=== PATIENT | male | born 1960 | race Caucasian/White ===

== ENCOUNTER 2019-03-29 18:45 | Inpatient (IN) ==
--- OUTSIDE RECORDS SUMMARY | 2019-03-29 18:48 | External Medical Summary | Continuity of Care Document ---
:1960 Author Name Avi Gilmore, Provider Address Unavailable Unavailable , Care Team Providers Name Role Phone Ynes Naylor Unavailable [email or web address] PCP, UNKNOWN Unavailable Unavailable Assessments Assessed Problems:Encounter for CDL (commercial driving license) exam Problems Encounter for CDL (commercial driving license) exam (V70.5) (Z02.4) Allergies and Adverse Reactions Allergy history not documented Medications Medications not documented Procedures Procedures not documented Immunizations Immunizations not documented Interventions Discussion/SummaryRecertification for 2 years Plan of Treatment Planned Observations Planned Goals not documented Results No Known Results Results not documented Encounters Appointment; Ynes Parham CRNP 15-Jul-2018 10:45 Encounter Diagnosis: Problem not documented
[2019-03-29 20:37] LABS: Basophils # (auto) 0.01 K/uL (0-0.2); Basophils % (auto) 0.2 %; Eosinophils # (auto) 0.26 K/uL (0-0.5); Eosinophils % (auto) 5.9 %; Hematocrit (blood only) 24.7 % (42-52); Hemoglobin 8.8 g/dL (14.0-18.0); Immature Granulocytes # (auto) 0.01 K/uL (0.00-0.02); Immature Granulocytes % (auto) 0.2 %; Lymphocytes # (auto) 0.54 K/uL (1.2-3.4); Lymphocytes % (auto) 12.3 %; Mean Corpuscular Hemoglobin 34.1 pg (25-34); Mean Corpuscular Hgb Conc 35.6 g/dL (32-36); Mean Corpuscular Volume 95.7 fL (80-100); Mean Platelet Volume 8.6 fL (7.4-10.4); Monocytes # (auto) 0.64 K/uL (0.11-0.59); Monocytes % (auto) 14.5 %; Neutrophils # (auto) 2.94 K/uL (1.4-6.5); Neutrophils % (auto) 66.9 %; Platelet Count 135 K/uL (130-400); RDW Coefficient of Variation 14.5 % (11.5-14.5); RDW Standard Deviation 50.9 fL (36.4-46.3); Red Blood Count 2.58 M/uL (4.7-6.1)
[2019-03-29 20:45] LABS: iSTAT Creatinine 0.5 mg/dl (0.6-1.3); iSTAT Hemoglobin 7.8 g/dl (14.0-18.0); iSTAT Ionized Calcium 1.09 mmol/l (1.12-1.32); iSTAT Potassium 3.4 mEq/L (3.3-5.0)
[2019-03-29 20:47] LABS: INR 1.1 (0.9-1.1); Partial Thromboplastin Ratio 1.3; Partial Thromboplastin Time 35.5 Seconds (21.0-31.0); Prothrombin Time 11.4 Seconds (9.0-12.0)
--- NOTE | 2019-03-29 20:47 | XRay Report ---
XR chest 1V portable HISTORY: weakness COMPARISON: None. FINDINGS: No pneumothorax. No pleural effusions. The heart is normal in size. Right jugular Port-A-Ca th terminates at the SVC. A few small linear densities favor subsegmental atelectasis or scarring. Ot herwise, lungs are clear. IMPRESSION: No acute process. Electronically signed by: Mt Payan M.D. 03/29/2019 8:45 PM
[2019-03-29 20:51] LABS: Albumin Level 2.2 gm/dl (3.4-5.0); BUN Creatinine Ratio 10.4 (10-20); Blood Urea Nitrogen 6 mg/dl (7-18); Calcium 7.6 mg/dl (8.5-10.1); Carbon Dioxide 27 mmol/L (21-32); Chloride 95 mmol/L (98-107); Creatinine Clr Calc Pharmacy 149.5 ml/min; Est GFR (African American) 130.3; Est GFR (Non-African American) 112.4; Glucose 140 mg/dl (70-99); Potassium 3.4 mmol/L (3.5-5.1); Sodium 128 mmol/L (136-145)
[2019-03-29] MEDS ORDERED: ONDANSETRON INJ 2 MG/ML 2 ML VIAL IV STA (20:57)
[2019-03-29] MEDS ORDERED: MoRPHine SULFATE 2 MG/ML CARP IV STA (20:57)
[2019-03-29 21:02] LABS: Alanine Aminotransferase 15 U/L (12-78); Albumin Globulin Ratio 0.8 (0.9-2); Alkaline Phosphatase 184 U/L (45-117); Aspartate Aminotransferase 31 U/L (15-37); Bilirubin,Total 0.7 mg/dl (0.2-1); Globulin 2.8 gm/dl (2.5-4.0); NT Pro B Type Natriuretic Pept 104 pg/ml (0-900); Troponin I < 0.015 ng/ml (0-0.045)
[2019-03-29] MEDS ORDERED: IOVERSOL 100ml IV PRN (21:09)
[2019-03-29 21:14] LABS: T4 Free Thyroxine 1.03 ng/dl (0.8-1.6)
--- NOTE | 2019-03-29 21:39 | CT Scan Report ---
ABDOMEN AND PELVIS CT WITH IV CONTRAST CT DOSE: 545.57 mGy.cm HISTORY: Generalized abd pain and distention TECHNIQUE: Multiaxial CT images of the abdomen and pelvis were performed following the use of intrave nous contrast. A dose lowering technique was utilized adhering to the principles of ALARA. COMPARISON STUDY: Abdomen and pelvis CT 04/11/2014. FINDINGS: Partially visualized right lower lobe masslike density measuring 2.1 cm. Trace left pleural effusion. A 1 cm nodular density within the base of the left lower lobe on image 28 is indeterminate and could represent atelectasis. No pneumoperitoneum. No pneumatosis. No suspicious lytic or blastic osseous lesions. Stable 15 mm hemangioma within the L3 vertebral body. 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 Cholelithiasis. No gallbladder wall thickening. No hepatic or splenic masses. Normal pancr eas. The left adrenal gland is unremarkable. Nodular thickening of the right adrenal gland with perip heral calcification. This measures up to 15 mm in thickness. No retroperitoneal lymphadenopathy. Norm al kidneys. The main portal vein is patent. Moderate to large amount of ascites. Postoperative change s consistent with a prior right hemicolectomy. No bowel wall thickening or obstruction. A 3.3 cm hypo dense focus within the central liver. This could represent a hepatic mass and is new from the prior s tudy. The bladder is decompressed by the ascites but appears unremarkable. IMPRESSION: 1. Moderate to large amount of ascites. A malignant ascites would be the diagnosis of exclusion given the patient's history of colon cancer. 2. A new 3.3 cm hypodense focus within the central liver. This could represent a metastatic lesion. D edicated liver MRI is recommended for further evaluation. 3. Partially visualized 2.1 cm masslike density within the right lower lobe. This could represent a p rimary pulmonary mass, metastatic disease, or a focal pneumonia. 4. Trace left pleural effusion. 5. Cholelithiasis. 6. Small paraesophageal varices. 7. Additional findings as described above. Electronically signed by: Mt Payan M.D. 03/29/2019 9:37 PM
[2019-03-29] MEDS ORDERED: SODIUM CHLORIDE 0.9% 500 ML IV ONE (21:59)
[2019-03-29] MEDS ORDERED: POTASSIUM CHLORIDE 20 MEQ TABCR PO STA (21:59)
[2019-03-29] MEDS ORDERED: ALBUMIN 25% 50 ML with FUROSEMIDE 40 MG IV ONE (22:30)
[2019-03-29] MEDS ORDERED: cefTRIAXone SODIUM 1,000 MG/50 ML BAG IV STA (22:52)
--- NOTE | 2019-03-29 22:53 | History & Physical Report ---
Date of Service March 29, 2019 Assessment & Plan (1) Ascites: Painful ascites Possible SBP, patient not septic tumor cirrhosis, new diagnosis hx colon cancer with liver and lung mets status post surgery, chemotherapy Acute on chronic anemia, hemoglobin drop from baseline Patient denies gross GI bleed chronic thrombocytopenia chronic hyponatremia likely slightly malignancy, liver disease Hypokalemia secondary to diuretic Rx Hyperglycemia rule out DM Medical telemetry given hyponatremia Lasix albumin 1 dose Ceftriaxone 1 dose for possible SBP given painful ascites complaints Diagnostic and therapeutic paracenteses (Ceftriaxone, IV albumin if peritoneal fluid analysis consistent with exudative ascites) GI consult RE new diagnosis of cirrhosis Monitor sodium, fluid restriction Replace potassium Anemia work-up, transfuse PRBC if hemoglobin less than 7 and/or for symptomatic anemia Check hemoglobin A1c DVT prophylaxis. SCDs RE thrombocytopenia Full code History of Present Illness Chief Complaint: Increased abdominal distention/pain Primary Care Provider: Radhames Millard PA-C History obtained from patient, family, and records. Medical history significant for colon cancer with liver and lung mets status post surgery, chemotherapy, chronic anemia (baseline hemoglobin 9-10), chronic thrombocytopenia, chronic hyponatremia. Recent confinement April 2014 under surgery service for colon perforation status post surgery. Right colon pathology later found to be invasive adenocarcinoma. Patient underwent chemotherapy. June 2017, patient found to have lung mets on imaging status post chemotherapy. July,, follow-up PET scan showed new metabolically active liver mets. MRI later showed metastatic disease left hepatic lobe. Additional chemotherapy given. December, PET/CT showed decreasing size metastatic nodule right lower lobe. New moderate large amount of ascites, diffuse mesenteric/omental edema h ypervascularity secondary to cirrhosis or other systemic process or neoplasm. Splenomegaly also noted. Patient abdomen noted to be distended by home nurse about 2 weeks ago. No unusual abdominal pain. Progressive abdominal distention and weight gain of about 20 pounds noted subsequently. Increased diarrhea attributed to recent chemotherapy session. Patient seen on follow-up at [facility] last week. Lasix prescription given for ascites, fluid retention. Hold chemotherapy interim as per outpatient note. Increasing abdominal distention and generalized abdominal pain with some nausea and emesis the last few days despite compliance with Lasix prescription. No fever, no chills. Diarrhea resolved as per patient. Increased bilateral leg swelling. Shortness of breath due to increased abdominal distention as per patient. No chest pain. Patient directed to the ER by PCPs office after consultation today. Medical History as above Surgical History : Bowel surgery, a port placement Family History : Diabetes Personal/Social history : Non-smoker, occasional EtOH intake, excavation contractor Allergies Allergy/AdvReac Type Severity Reaction Status Date / Time No Known Allergies Allergy Unverified 04/12/14 00:22 Home Medications Home Medications Medication Instructions Recorded Confirmed Type furosemide [Lasix] 20 mg PO DAILY 03/29/19 03/29/19 History ranitidine HCl [Zantac] 150 mg PO DAILY PRN 03/29/19 03/29/19 History Past Med/Surg History Surgical History History of partial colectomy Social History Preferred Language: Kiswahili Communication Ability: Effective On Site Manager Required: No Beliefs That Will Affect Care: None Current Living Situation: Significant Other Other Information That Helps Us Care for You: Yes (chemo [id number] (last dose on last thu of jan)) Feels Safe at Home: Yes Safety Concerns: Feels Safe At This Time Smoking Status: Never smoker Do You Dip or Chew Tobacco: Yes (1 can/week) ; Tobacco Cessation Education Requested by Patient: No Hx Alcohol Use: Yes Alcohol type: beer Hx Substance Use: No Review of Systems Review of Systems: As per HPI, all 10 systems reviewed, all other ROS negative Physical Exam Physical Exam: GENERAL: Comfortable, pleasant, underweight, no respiratory distress SKIN: Pallor, warm HEENT: Alopecia, pale palpebral conjunctivae, no ptosis, dry buccal mucosa NECK : Supple, no tenderness CHEST : CTA, no tenderness HEART : RRR, systolic murmur ABDOMEN: distention, nonspecific tenderness on light palpation, fluid wave EXTREMITIES : Bilateral LE swelling, no LE tenderness, no other conspicuous deformities noted NEUROLOGIC : Coherent, no facial asymmetry, no other gross focality Results & Data Vital Signs (Past 12 Hours) Vital Signs Temp Pulse Pulse Resp BP BP Pulse Ox 03/29/19 22:37 87 18 122/85 99 03/29/19 20:32 90 23 125/87 100 03/29/19 20:31 92 H 23 100 03/29/19 19:35 92 H 18 124/88 100 03/29/19 18:57 37.3 C 98 H 16 126/94 96 Laboratory Results Laboratory Results WBC 4.40 K/uL (4.8-10.8) L 03/29/19 19:43 RBC 2.58 M/uL (4.7-6.1) L 03/29/19 19:43 Hgb 8.8 g/dL (14.0-18.0) L 03/29/19 19:43 POC Hgb 7.8 g/dl (14.0-18.0) L 03/29/19 20:31 Hct 24.7 % (42-52) L 03/29/19 19:43 POC Hct 23 % (42-52) L 03/29/19 20:31 MCV 95.7 fL (80-100) 03/29/19 19:43 MCH 34.1 pg (25-34) H 03/29/19 19:43 MCHC 35.6 g/dL (32-36) 03/29/19 19:43 RDW Std Deviation 50.9 fL (36.4-46.3) H 03/29/19 19:43 RDW Coeff of Selam 14.5 % (11.5-14.5) 03/29/19 19:43 Plt Count 135 K/uL (130-400) 03/29/19 19:43 MPV 8.6 fL (7.4-10.4) 03/29/19 19:43 Immature Gran % (Auto) 0.2 % 03/29/19 19:43 Neut % (Auto) 66.9 % 03/29/19 19:43 Lymph % (Auto) 12.3 % 03/29/19 19:43 Hendricks % (Auto) 14.5 % 03/29/19 19:43 Eos % (Auto) 5.9 % 03/29/19 19:43 Baso % (Auto) 0.2 % 03/29/19 19:43 Immature Gran # (Auto) 0.01 K/uL (0.00-0.02) 03/29/19 19:43 Neut # (Auto) 2.94 K/uL (1.4-6.5) 03/29/19 19:43 Lymph # (Auto) 0.54 K/uL (1.2-3.4) L 03/29/19 19:43 Hendricks # (Auto) 0.64 K/uL (0.11-0.59) H 03/29/19 19:43 Eos # (Auto) 0.26 K/uL (0-0.5) 03/29/19 19:43 Baso # (Auto) 0.01 K/uL (0-0.2) 03/29/19 19:43 PT 11.4 Seconds (9.0-12.0) 03/29/19 19:43 INR 1.1 (0.9-1.1) 03/29/19 19:43 APTT 35.5 Seconds (21.0-31.0) H 03/29/19 19:43 PTT Ratio 1.3 03/29/19 19:43 POC Sodium 126 mEq/L (135-144) L 03/29/19 20:31 Sodium 128 mmol/L (136-145) L 03/29/19 19:43 POC Potassium 3.4 mEq/L (3.3-5.0) 03/29/19 20:31 Potassium 3.4 mmol/L (3.5-5.1) L 03/29/19 19:43 POC Chloride 90 mEq/L (101-112) L 03/29/19 20:31 Chloride 95 mmol/L (98-107) L 03/29/19 19:43 Carbon Dioxide 27 mmol/L (21-32) 03/29/19 19:43 POC Total CO2 24 mEq/l (24-31) 03/29/19 20:31 Anion Gap 6.0 (3-11) 03/29/19 19:43 POC Anion Gap 17.0 mmol/L (16-25) 03/29/19 20:31 POC BUN 4 mg/dl (7-18) L 03/29/19 20:31 BUN 6 mg/dl (7-18) L 03/29/19 19:43 Creatinine 0.60 mg/dl (0.6-1.4) 03/29/19 19:43 POC Creatinine 0.5 mg/dl (0.6-1.3) L 03/29/19 20:31 Est Cr Clr Drug Dosing 149.5 ml/min 03/29/19 19:43 Est GFR ( Amer) 130.3 03/29/19 19:43 Est GFR (Non-Af Amer) 112.4 03/29/19 19:43 BUN/Creatinine Ratio 10.4 (10-20) 03/29/19 19:43 Glucose 140 mg/dl (70-99) H 03/29/19 19:43 POC Glucose (other) 141 mg/dl (70-99) H 03/29/19 20:31 Osmolality 260 mOsm/kg (280-300) L 03/29/19 22:17 Lactate 2.2 mmol/L (0.4-2.0) H* 03/29/19 19:43 Calcium 7.6 mg/dl (8.5-10.1) L 03/29/19 19:43 POC Ioniz Calcium Saba 1.09 mmol/l (1.12-1.32) L 03/29/19 20:31 Magnesium 1.8 mg/dl (1.8-2.4) 03/29/19 19:43 Total Bilirubin 0.7 mg/dl (0.2-1) 03/29/19 19:43 AST 31 U/L (15-37) 03/29/19 19:43 ALT 15 U/L (12-78) 03/29/19 19:43 Alkaline Phosphatase 184 U/L (45-117) H 03/29/19 19:43 Troponin I < 0.015 ng/ml (0-0.045) 03/29/19 19:43 NT-Pro-B Natriuret Pep 104 pg/ml (0-900) 03/29/19 19:43 Total Protein 5.0 gm/dl (6.4-8.2) L 03/29/19 19:43 Albumin 2.2 gm/dl (3.4-5.0) L 03/29/19 19:43 Globulin 2.8 gm/dl (2.5-4.0) 03/29/19 19:43 Albumin/Globulin Ratio 0.8 (0.9-2) L 03/29/19 19:43 TSH 4.930 uIu/ml (0.300-4.500) H 03/29/19 19:43 Free T4 1.03 ng/dl (0.8-1.6) 03/29/19 19:43 Diagnostic Findings Chest x-ray no acute process EKG as per my interpretation: Rate 90, NSR, normal axis, no ischemia CT abdomen pelvis 1. Moderate to large amount of ascites. A malignant ascites would be the diagnosis of exclusion given the patient's history of colon cancer. 2. A new 3.3 cm hypodense focus within the central liver. This could represent a metastatic lesion. Dedicated liver MRI is recommended for further evaluation. 3. Partially visualized 2.1 cm masslike density within the right lower lobe. This could represent a primary pulmonary mass, metastatic disease, or a focal pneumonia. 4. Trace left pleural effusion. 5. Cholelithiasis. 6. Small paraesophageal varices. 7. Additional findings as described above. (1) Ascites Ascites type: other type Qualified Code(s): R18.8 - Other ascites
[2019-03-29 23:41] LABS: Appearance Urine Clear (Clear); Bilirubin Urine Negative (Negative); Blood Urine Negative (Negative); Color Urine Yellow; Glucose Urine UA Negative (Negative); Ketones Urine Negative (Negative); Leukocyte Esterase Urine Negative (Negative); Nitrite Urine Negative (Negative); Protein Urine Negative (Negative); Specific Gravity Urine 1.031 (1.000-1.030); Urobilinogen Urine Negative (Negative); pH Urine 7.5 (4.5-7.5)
[2019-03-29] MEDS ORDERED: MAGNESIUM SULFATE / D5W 1 GM/100 ML BAG IV ONE (23:55)
[2019-03-29] MEDS ORDERED: PROMETHAZINE HCL 12.5 MG in SODIUM CHLORIDE 0.9% 50 ML IV PRN (23:55)
[2019-03-29] MEDS ORDERED: LORazepam 0.5 MG/1 ML VIAL IV PRN (23:55)
[2019-03-29] MEDS ORDERED: OXYCODONE HCL IR 5 MG TAB (IMMEDIATE RELEASE) PO PRN (23:55)
[2019-03-29] MEDS ORDERED: CALCIUM GLUCONATE 10% 1,000 MG in SODIUM CHLORIDE 0.9% 50 ML IV STA (23:55)
[2019-03-30] MEDS: MoRPHine SULFATE 4 MG/ML 1 ML CARP\\VIAL IV PRN ×2 (00:55→11:19)
[2019-03-30 01:03] LABS: Reticulocyte % 2.1 % (0.5-2.0); Reticulocytes # 0.05 10^6/uL (0.02-0.10)
--- NOTE | 2019-03-30 01:03 | Emergency Department Note ---
Entered by Danyell Acosta acting as a scribe for History of Present Illness General Chief complaint: Swelling/Edema to Extremity Stated complaint: FLUID BUILD UP IN ABDOMEN Time Seen by Provider: 03/29/19 19:34 Source: patient Mode of arrival: ambulatory Limitations: no limitations History of Present Illness Onset (ago): day(s) 3 Location: abdomen Radiation: non-radiation Pain Consistency: + constant Maximum Pain Intensity: 10 Current Pain Intensity: 10 Relieved By: + none Exacerbated By: + none Associated symptoms: + other (-hematochezia, -melena); no fever/chills Treatments prior to arrival: none The patient is a 58 year old male who presents to the ED with complaints of abdominal pain for the past few days. He rates his discomfort as a 10/10 in severity. He is currently being treated for colon cancer. He has previously undergone a partial colectomy in 2013. He is still receiving chemotherapy but his last chemo was approximately 4 weeks ago. He states he has been swelling with fluid all over and recently gained 21 pounds in 3 weeks. He denies any recent fevers. He denies any hematochezia or melena. Home Medications Home Medications Medication Instructions Recorded Confirmed Type furosemide [Lasix] 20 mg PO DAILY 03/29/19 03/29/19 History ranitidine HCl [Zantac] 150 mg PO DAILY PRN 03/29/19 03/29/19 History Allergies Allergy/AdvReac Type Severity Reaction Status Date / Time No Known Allergies Allergy Unverified 04/12/14 00:22 Past Med/Surg History Surgical History History of partial colectomy Social History Preferred Language: French Communication Ability: Effective Hims Coder Required: No Beliefs That Will Affect Care: None Current Living Situation: Significant Other Other Information That Helps Us Care for You: Yes (chemo [id number] (last dose on last thu)) Feels Safe at Home: Yes Safety Concerns: Feels Safe At This Time Smoking Status: Never smoker Do You Dip or Chew Tobacco: Yes (1 can/week) ; Tobacco Cessation Education Requested by Patient: No Hx Alcohol Use: Yes Alcohol type: beer Hx Substance Use: No Review of Systems See HPI for pertinent positives & negatives. and A total of 10 systems reviewed and were otherwise negative Physical Exam Vital Signs Vital Signs - 24 hr 03/29/19 18:57 03/29/19 19:35 03/29/19 20:31 Temperature 37.3 C Temperature Source Oral Sepsis Recent Fever Within 48 Hours No Sepsis New/Unexplained Change in Mental Status No Sepsis Action Taken by Nursing No Action Required Pulse Rate 98 H 92 H Pulse Rate [Finger] 92 H Pulse Rhythm Regular Pulse Rhythm [Finger] Regular Pulse Strength [Finger] Normal Respiratory Rate 16 18 23 Respiratory Effort / Characteristics Non-Labored Spontaneous Respiratory Depth Normal Normal Respiratory Pattern Regular Blood Pressure 126/94 Blood Pressure [Right Arm] 124/88 Blood Pressure Mean 104 Blood Pressure Mean [Right Arm] 100 Pulse Oximetry 96 100 100 Oxygen Delivery Method Room Air Room Air Room Air 03/29/19 20:32 03/29/19 22:37 Temperature Temperature Source Sepsis Recent Fever Within 48 Hours Sepsis New/Unexplained Change in Mental Status Sepsis Action Taken by Nursing Pulse Rate Pulse Rate [Finger] 90 87 Pulse Rhythm Pulse Rhythm [Finger] Regular Regular Pulse Strength [Finger] Normal Normal Respiratory Rate 23 18 Respiratory Effort / Characteristics Non-Labored Spontaneous Non-Labored Spontaneous Respiratory Depth Normal Normal Respiratory Pattern Regular Regular Blood Pressure Blood Pressure [Right Arm] 125/87 122/85 Blood Pressure Mean Blood Pressure Mean [Right Arm] 99 97 Pulse Oximetry 100 99 Oxygen Delivery Method Room Air Room Air General: Chronically-ill appearing middle aged male in no acute distress. HEENT: Normal cephalic atraumatic. Pupils are equal round and reactive to light. Extraocular movements are intact. Oropharynx is pink with moist mucous membranes. No swelling of the mouth lips or tongue. Neck: Supple with a midline trachea. No meningeal signs or stiffness, no JVD or bruits. No Stridor. Chest: Clear to auscultation bilaterally. No wheezes or rhonchi. No increased work of breathing. Heart: regular rate and rhythm. Abdomen: Soft without rebound guarding or rigidity. Abdomen is distended, mildly diffusely tender, Extremities: No cyanosis clubbing. No calf tenderness or asymmetry. Pitting edema of BLE Spine/Back. Non tender to palpation. No CVA tenderness Skin: Good turgor without rashes. Neurologic exam: Cranial nerves two through 12 are intact. Motor and sensation are intact and symmetrical throughout. Course 1936: The patient was evaluated in room B8 and a complete history and physical were performed. 1999: I checked the patient at this time. He asked for something for his abdominal pain. Was give IV Zofran and morphine 2149: Discussed the patient's case with Dr. Rojas, [facility] Hospitalist. The patient will be evaluated for further management. Administered Medications Discontinued Medications Sodium Chloride (Nss) 500 mls @ 500 mls/hr IV .Q1H ONE Stop: 03/29/19 22:58 Last Admin: 03/29/19 22:36 Dose: Not Given Documented by: [id number] Furosemide 40 mg/ Albumin (Human) 54 mls @ 54 mls/hr IV NOW ONE Stop: 03/29/19 23:29 Last Infusion: 03/29/19 23:30 Dose: 0 mls/hr Documented by: [id number] Admin: 03/29/19 22:29 Dose: 54 mls/hr Documented by: [id number] Ceftriaxone Sodium (Rocephin) 1,000 mg in 50 mls @ 100 mls/hr IV NOW STA Stop: 03/29/19 23:21 Last Infusion: 03/29/19 23:42 Dose: 0 mls/hr Documented by: [id number] Admin: 03/29/19 23:12 Dose: 100 mls/hr Documented by: [id number] Ioversol (Optiray 320 100ml) 90 ml IV ONCE PRN PRN Reason: Interaction Checking Stop: 04/02/19 21:08 Last Admin: 03/29/19 21:09 Dose: 90 ml Documented by: [id number] Morphine Sulfate (Morphine Sulfate) 2 mg IV NOW STA Stop: 03/29/19 20:58 Last Admin: 03/29/19 21:01 Dose: 2 mg Documented by: [id number] Ondansetron HCl (Zofran) 4 mg IV NOW STA Stop: 03/29/19 20:58 Last Admin: 03/29/19 21:01 Dose: 4 mg Documented by: [id number] Potassium Chloride (Klor-Con M20) 40 meq PO NOW STA Stop: 03/29/19 22:00 Last Admin: 03/29/19 22:29 Dose: 40 meq Documented by: [id number] Medical Decision Making Differential Diagnosis The differential diagnoses considered include fluid retention, CHF, nutritional deficiency, cancer complication Medical Records Attestation: I reviewed the patient's medical records. Home Medications Current Medication List: was personally reviewed by me Laboratory Data Attestation: I reviewed the patient's lab results. Result diagrams: 03/29/19 19:43 03/29/19 19:43 Lab Results 03/29/19 03/29/19 03/29/19 Range/Units 19:43 19:43 19:43 WBC 4.40 L (4.8-10.8) K/uL RBC 2.58 L (4.7-6.1) M/uL Hgb 8.8 L (14.0-18.0) g/dL POC Hgb (14.0-18.0) g/dl Hct 24.7 L (42-52) % POC Hct (42-52) % MCV 95.7 (80-100) fL MCH 34.1 H (25-34) pg MCHC 35.6 (32-36) g/dL RDW Std Deviation 50.9 H (36.4-46.3) fL RDW Coeff of Selam 14.5 (11.5-14.5) % Plt Count 135 (130-400) K/uL MPV 8.6 (7.4-10.4) fL Immature Gran % (Auto) 0.2 % Neut % (Auto) 66.9 % Lymph % (Auto) 12.3 % Towns % (Auto) 14.5 % Eos % (Auto) 5.9 % Baso % (Auto) 0.2 % Immature Gran # (Auto) 0.01 (0.00-0.02) K/uL Neut # (Auto) 2.94 (1.4-6.5) K/uL Lymph # (Auto) 0.54 L (1.2-3.4) K/uL Towns # (Auto) 0.64 H (0.11-0.59) K/uL Eos # (Auto) 0.26 (0-0.5) K/uL Baso # (Auto) 0.01 (0-0.2) K/uL PT (9.0-12.0) Seconds INR (0.9-1.1) APTT (21.0-31.0) Seconds PTT Ratio POC Sodium (135-144) mEq/L Sodium 128 L (136-145) mmol/L POC Potassium (3.3-5.0) mEq/L Potassium 3.4 L (3.5-5.1) mmol/L POC Chloride (101-112) mEq/L Chloride 95 L (98-107) mmol/L Carbon Dioxide 27 (21-32) mmol/L POC Total CO2 (24-31) mEq/l Anion Gap 6.0 (3-11) POC Anion Gap (16-25) mmol/L POC BUN (7-18) mg/dl BUN 6 L (7-18) mg/dl Creatinine 0.60 (0.6-1.4) mg/dl POC Creatinine (0.6-1.3) mg/dl Est Cr Clr Drug Dosing 149.5 ml/min Est GFR ( Amer) 130.3 Est GFR (Non-Af Amer) 112.4 BUN/Creatinine Ratio 10.4 (10-20) Glucose 140 H (70-99) mg/dl POC Glucose (other) (70-99) mg/dl Osmolality (280-300) mOsm/kg Lactate 2.2 H* (0.4-2.0) mmol/L Calcium 7.6 L (8.5-10.1) mg/dl POC Ioniz Calcium Saba (1.12-1.32) mmol/l Magnesium (1.8-2.4) mg/dl Total Bilirubin 0.7 (0.2-1) mg/dl AST 31 (15-37) U/L ALT 15 (12-78) U/L Alkaline Phosphatase 184 H (45-117) U/L Troponin I < 0.015 (0-0.045) ng/ml NT-Pro-B Natriuret Pep 104 (0-900) pg/ml Total Protein 5.0 L (6.4-8.2) gm/dl Albumin 2.2 L (3.4-5.0) gm/dl Globulin 2.8 (2.5-4.0) gm/dl Albumin/Globulin Ratio 0.8 L (0.9-2) Procalcitonin (0-0.5) ng/ml TSH 4.930 H (0.300-4.500) uIu/ml Free T4 1.03 (0.8-1.6) ng/dl 03/29/19 03/29/19 03/29/19 Range/Units 19:43 19:43 20:31 WBC (4.8-10.8) K/uL RBC (4.7-6.1) M/uL Hgb (14.0-18.0) g/dL POC Hgb 7.8 L (14.0-18.0) g/dl Hct (42-52) % POC Hct 23 L (42-52) % MCV (80-100) fL MCH (25-34) pg MCHC (32-36) g/dL RDW Std Deviation (36.4-46.3) fL RDW Coeff of Selam (11.5-14.5) % Plt Count (130-400) K/uL MPV (7.4-10.4) fL Immature Gran % (Auto) % Neut % (Auto) % Lymph % (Auto) % Towns % (Auto) % Eos % (Auto) % Baso % (Auto) % Immature Gran # (Auto) (0.00-0.02) K/uL Neut # (Auto) (1.4-6.5) K/uL Lymph # (Auto) (1.2-3.4) K/uL Towns # (Auto) (0.11-0.59) K/uL Eos # (Auto) (0-0.5) K/uL Baso # (Auto) (0-0.2) K/uL PT 11.4 (9.0-12.0) Seconds INR 1.1 (0.9-1.1) APTT 35.5 H (21.0-31.0) Seconds PTT Ratio 1.3 POC Sodium 126 L (135-144) mEq/L Sodium (136-145) mmol/L POC Potassium 3.4 (3.3-5.0) mEq/L Potassium (3.5-5.1) mmol/L POC Chloride 90 L (101-112) mEq/L Chloride (98-107) mmol/L Carbon Dioxide (21-32) mmol/L POC Total CO2 24 (24-31) mEq/l Anion Gap (3-11) POC Anion Gap 17.0 (16-25) mmol/L POC BUN 4 L (7-18) mg/dl BUN (7-18) mg/dl Creatinine (0.6-1.4) mg/dl POC Creatinine 0.5 L (0.6-1.3) mg/dl Est Cr Clr Drug Dosing ml/min Est GFR ( Amer) Est GFR (Non-Af Amer) BUN/Creatinine Ratio (10-20) Glucose (70-99) mg/dl POC Glucose (other) 141 H (70-99) mg/dl Osmolality (280-300) mOsm/kg Lactate (0.4-2.0) mmol/L Calcium (8.5-10.1) mg/dl POC Ioniz Calcium Saba 1.09 L (1.12-1.32) mmol/l Magnesium 1.8 (1.8-2.4) mg/dl Total Bilirubin (0.2-1) mg/dl AST (15-37) U/L ALT (12-78) U/L Alkaline Phosphatase (45-117) U/L Troponin I (0-0.045) ng/ml NT-Pro-B Natriuret Pep (0-900) pg/ml Total Protein (6.4-8.2) gm/dl Albumin (3.4-5.0) gm/dl Globulin (2.5-4.0) gm/dl Albumin/Globulin Ratio (0.9-2) Procalcitonin (0-0.5) ng/ml TSH (0.300-4.500) uIu/ml Free T4 (0.8-1.6) ng/dl 03/29/19 03/29/19 Range/Units 22:17 22:17 WBC (4.8-10.8) K/uL RBC (4.7-6.1) M/uL Hgb (14.0-18.0) g/dL POC Hgb (14.0-18.0) g/dl Hct (42-52) % POC Hct (42-52) % MCV (80-100) fL MCH (25-34) pg MCHC (32-36) g/dL RDW Std Deviation (36.4-46.3) fL RDW Coeff of Selam (11.5-14.5) % Plt Count (130-400) K/uL MPV (7.4-10.4) fL Immature Gran % (Auto) % Neut % (Auto) % Lymph % (Auto) % Towns % (Auto) % Eos % (Auto) % Baso % (Auto) % Immature Gran # (Auto) (0.00-0.02) K/uL Neut # (Auto) (1.4-6.5) K/uL Lymph # (Auto) (1.2-3.4) K/uL Towns # (Auto) (0.11-0.59) K/uL Eos # (Auto) (0-0.5) K/uL Baso # (Auto) (0-0.2) K/uL PT (9.0-12.0) Seconds INR (0.9-1.1) APTT (21.0-31.0) Seconds PTT Ratio POC Sodium (135-144) mEq/L Sodium (136-145) mmol/L POC Potassium (3.3-5.0) mEq/L Potassium (3.5-5.1) mmol/L POC Chloride (101-112) mEq/L Chloride (98-107) mmol/L Carbon Dioxide (21-32) mmol/L POC Total CO2 (24-31) mEq/l Anion Gap (3-11) POC Anion Gap (16-25) mmol/L POC BUN (7-18) mg/dl BUN (7-18) mg/dl Creatinine (0.6-1.4) mg/dl POC Creatinine (0.6-1.3) mg/dl Est Cr Clr Drug Dosing ml/min Est GFR ( Amer) Est GFR (Non-Af Amer) BUN/Creatinine Ratio (10-20) Glucose (70-99) mg/dl POC Glucose (other) (70-99) mg/dl Osmolality 260 L (280-300) mOsm/kg Lactate (0.4-2.0) mmol/L Calcium (8.5-10.1) mg/dl POC Ioniz Calcium Saba (1.12-1.32) mmol/l Magnesium (1.8-2.4) mg/dl Total Bilirubin (0.2-1) mg/dl AST (15-37) U/L ALT (12-78) U/L Alkaline Phosphatase (45-117) U/L Troponin I (0-0.045) ng/ml NT-Pro-B Natriuret Pep (0-900) pg/ml Total Protein (6.4-8.2) gm/dl Albumin (3.4-5.0) gm/dl Globulin (2.5-4.0) gm/dl Albumin/Globulin Ratio (0.9-2) Procalcitonin 0.14 (0-0.5) ng/ml TSH (0.300-4.500) uIu/ml Free T4 (0.8-1.6) ng/dl Imaging Data Radiologist's Impression: Radiology results as stated below per my review and the radiologist's interpretation: XR chest 1V portable HISTORY: weakness COMPARISON: None. FINDINGS: No pneumothorax. No pleural effusions. The heart is normal in size. Right jugular Port-A-Cath terminates at the SVC. A few small linear densities favor subsegmental atelectasis or scarring. Otherwise, lungs are clear. IMPRESSION: No acute process. Electronically signed by: Mt Payan M.D. 03/29/2019 8:45 PM ABDOMEN AND PELVIS CT WITH IV CONTRAST CT DOSE: 545.57 mGy.cm HISTORY: Generalized abd pain and distention TECHNIQUE: Multiaxial CT images of the abdomen and pelvis were performed following the use of intravenous contrast. A dose lowering technique was utilized adhering to the principles of ALARA. COMPARISON STUDY: Abdomen and pelvis CT 04/11/2014. FINDINGS: Partially visualized right lower lobe masslike density measuring 2.1 cm. Trace left pleural effusion. A 1 cm nodular density within the base of the left lower lobe on image 28 is indeterminate and could represent atelectasis. No pneumoperitoneum. No pneumatosis. No suspicious lytic or blastic osseous lesions. Stable 15 mm hemangioma within the L3 vertebral body. 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 Cholelithiasis. No gallbladder wall thickening . No hepatic or splenic masses. Normal pancreas. The left adrenal gland is unremarkable. Nodular thickening of the right adrenal gland with peripheral calcification. This measures up to 15 mm in thickness. No retroperitoneal lymphadenopathy. Normal kidneys. The main portal vein is patent. Moderate to large amount of ascites. Postoperative changes consistent with a prior right hemicolectomy. No bowel wall thickening or obstruction. A 3.3 cm hypodense focus within the central liver. This could represent a hepatic mass and is new from the prior study. The bladder is decompressed by the ascites but appears unremarkable. IMPRESSION: 1. Moderate to large amount of ascites. A malignant ascites would be the diagnosis of exclusion given the patient's history of colon cancer. 2. A new 3.3 cm hypodense focus within the central liver. This could represent a metastatic lesion. Dedicated liver MRI is recommended for further evaluation. 3. Partially visualized 2.1 cm masslike density within the right lower lobe. This could represent a primary pulmonary mass, metastatic disease, or a focal pneumonia. 4. Trace left pleural effusion. 5. Cholelithiasis. 6. Small paraesophageal varices. 7. Additional findings as described above. Electronically signed by: Mt Payan M.D. 03/29/2019 9:37 PM ECG Data Attestation: I personally reviewed and interpreted this ECG as follows: Indication: abdominal pain Rate (beats per minute): 88 Rhythm: normal sinus ECG Findings: Other (no acute ischemia, no ectopy) Comparison ECG Date: no prior available Blood Pressure Blood Pressure Findings: Elevated blood pressure Blood Pressure Disposition: further management by hospitalist [facility] Narrative This patient comes in as described above. He has a history of metastatic colon cancer and has had increasing weight gain his legs and abdomen he has abdominal discomfort secondary to the increased fluid he says. He has no history of ascites prior. He is on chemo however has not had chemo for about 4 weeks secondary to diarrhea and not feeling well. He said no fever or chills. No chest pain or shortness of breath. He does have an a port that was accessed. Multiple blood testing was obtained. I did a CAT scan of his abdomen and it shows a ascites without any definite bowel obstruction. He has no acute el ectrolyte or metabolic abnormalities. he is anemic with a hemoglobin 8.8. I do think he needs to be admitted for diuresis and further treatment and evaluation. He will also likely need paracentesis. I did consult the hospitalist from [facility] to see him. His lactic acid is mildly elevated however at this point I do not find any signs of infection but he can be further monitored in the hospital. Impression & Plan Ascites, Colon cancer, Edema of lower extremity, Liver metastasis, Anemia, Elevated lactic acid level Discharge Plan Visit Data *Final* Discharge Date/Time: 03/29/19 23:31 Chief Complaint: Swelling/Edema to Extremity Stated Complaint: FLUID BUILD UP IN ABDOMEN ED Provider: Prasanna Rocha Discharge Problem: Ascites, Colon cancer, Edema of lower extremity, Liver metastasis, Anemia, Elevated lactic acid level Patient Disposition: Admitted As Inpatient Discharge Instructions Interventions: ED Discharge Assessment Last Done: 03/29/19 23:31 Discharge Problem: Ascites Qualifiers: Ascites type: other type Qualified Code(s): R18.8 - Other ascites Colon cancer Qualifiers: Colon location: unspecified part of colon Qualified Code(s): C18.9 - Malignant neoplasm of colon, unspecified Anemia Qualifiers: Anemia type: unspecified type Qualified Code(s): D64.9 - Anemia, unspecified The scribe's documentation has been prepared under my direction and personally reviewed by me in its entirety. I confirm that the note above accurately reflects all work, treatment, procedures, and medical decision making performed by me.
[2019-03-30 01:26] LABS: Ferritin 347.2 ng/ml (8-388)
[2019-03-30 01:32] LABS: Folate (Folic Acid) 13.02 ng/ml (>5.38)
[2019-03-30] MEDS ORDERED: LORATADINE 10 MG TAB PO ONE (05:44)
[2019-03-30] MEDS ORDERED: INFLUENZA ADMINISTRATION CHARGE ONE (06:00)
[2019-03-30] MEDS ORDERED: INFLUENZA VIRUS QUAD VACCINE 0.5 ML SYR IM ONE (06:00)
[2019-03-30 06:27] LABS: Basophils # (auto) 0.01 K/uL (0-0.2); Basophils % (auto) 0.4 %; Eosinophils # (auto) 0.26 K/uL (0-0.5); Eosinophils % (auto) 9.5 %; Hematocrit (blood only) 25.6 % (42-52); Hemoglobin 8.9 g/dL (14.0-18.0); Lymphocytes # (auto) 0.65 K/uL (1.2-3.4); Lymphocytes % (auto) 23.7 %; Mean Corpuscular Hemoglobin 34.2 pg (25-34); Mean Corpuscular Hgb Conc 34.8 g/dL (32-36); Mean Corpuscular Volume 98.5 fL (80-100); Mean Platelet Volume 9.2 fL (7.4-10.4); Monocytes # (auto) 0.41 K/uL (0.11-0.59); Neutrophils # (auto) 1.41 K/uL (1.4-6.5); Neutrophils % (auto) 51.4 %; Platelet Count 140 K/uL (130-400); RDW Coefficient of Variation 14.6 % (11.5-14.5); RDW Standard Deviation 52.7 fL (36.4-46.3); White Blood Count 2.74 K/uL (4.8-10.8)
[2019-03-30 06:44] LABS: Estimated Average Glucose 85 mg/dl; Hemoglobin A1C 4.6 % (4.5-5.6)
[2019-03-30 07:03] LABS: Albumin Level 2.2 gm/dl (3.4-5.0); BUN Creatinine Ratio 11.2 (10-20); Bilirubin Direct 0.3 mg/dl (0-0.2); Calcium 7.8 mg/dl (8.5-10.1); Creatinine Clr Calc Pharmacy 163.3 ml/min; Est GFR (African American) 140.4; Est GFR (Non-African American) 121.1; Potassium 3.8 mmol/L (3.5-5.1)
[2019-03-30 07:05] LABS: Bilirubin,Total 0.9 mg/dl (0.2-1)
[2019-03-30] MEDS ORDERED: ALBUMIN HUMAN 25% 12.5 GM/50 ML VIAL IV ONE (09:45)
--- NOTE | 2019-03-30 10:57 | Gastrointestinal Consultation ---
Date of Consultation March 30, 2019 Assessment & Plan (1) Colon cancer: (2) Ascites: (3) Edema of lower extremity: Pt is a 58 y/o male w hx of colon ca s/p R hemicolectomy currently undergoing chemo for metastatic colon ca (R lung, R adrenal gland, liver, ? omentum) who is admitted for symptoms of ascites, leg edema and weight gain uncontrolled w Lasix. ? cirrhosis - previous imaging studies w signs of hepatic steatosis w mild splenomegaly, paraesophageal varices though plt, pt/inr and LFTs relatively normal. HCV Ab negative. Questionable ETOH abuse hx in the past. - He is scheduled for u/s guided paracentesis w fluid analysis (cell ct, protein, albumin, glucose, LDH, cx and cytology). Will calculate SAAG based & check cytology after paracentesis is completed to determine if ascites build up is related to liver disease vs malignant ascites (which is usually non responsive to diuretics). - If ascites related to portal HTN will benefit from diuretics and low Na (2g) diet. - Given paraesophageal varices, should keep him on non selective beta tonya (currently on Propranolol), goal HR 55-65 - Will review CT images to see if liver lesion contributing to compression of hepatic vein causing portal HTN effect - ETOH cessation Supervising Physician Co-Signing Physician Notes Attending attestation I have seen, examined this patient, and agree with the findings and above by our mid-level provider QUENTIN Ceja, with the following additions -She with known metastatic colorectal carcinoma, on chemotherapy now presenting with volume overload and ascites. The differential diagnosis for ascites in this case would likely be the portal hypertension versus malignant ascites. -Proceed with paracentesis for comfort, if this is malignant ascites diuresis is likely to be beneficial, however if portal hypertensive and low-salt diet no greater than 2 g daily as well as diuretics would be the first modality of treatment. -Further recs after Para -Continue non-selective BB given the suspected varices (on propranolol) History of Present Illness Reason for Consultation: Ascites, cirrhosis Requesting Physician: Dr. Nick Rojas Attending Physician: Dr. Jason Arnold History of Present Illness Pt is a 58 y/o male who presented to ED yesterday w c/o worsening abd distension, leg swelling, difficulty breathing, and 20 lbs weight gain in last 2 months. He has hx of colon ca s/p R hemicolectomy in 2013. His last colonoscopy was in 2017, unremarkable exam, recommended repeat in 5 yrs time. He is currently being followed by Dr. Kinney for mets of his colon ca to R lung, R adrenal, liver. His most recent PET scan also showed new ascites w diffuse mesenteric and omental edema/hypervascularity ? peritoneal inflammation/infection vs neoplastic involvement. He is due for repeat PET scan soon. His last chemo w Folfiri and Avastin was about 5 weeks ago. He had been c/o diarrhea w chemo sessions. He had been using Lasix 20mg daily to control volume overload w/o much relief. Last night eventually went to ED, CT Abd/pelvis noted large ascites. He was given Lasix w Albumin IV and this AM felt a bit better, states abd and leg not so swollen and he can breath better. Inpt and outpt chart reviewed. Pt had hx of hepatic steatosis noted on previous CT and liver MRI. He does have small paraesophageal varices ad splenomegaly. Main portal vein appears patent. PT/INR, plt ct normal. His serum albumin is low. LFTs w mild alk phos elevation but normal otherwise. He denies hx of autoimmune disease, illicit drugs, tattoos, body piercing. He drinks 1-2 beer a day now adays, admits previously may drink 8 beers a day. Hep C Ab negative. Allergies Allergy/AdvReac Type Severity Reaction Status Date / Time No Known Allergies Allergy Unverified 04/12/14 00:22 Home Medications Home Medications Medication Instructions Recorded Confirmed Type furosemide [Lasix] 20 mg PO DAILY 03/29/19 03/29/19 History ranitidine HCl [Zantac] 150 mg PO DAILY PRN 03/29/19 03/29/19 History Patient History Medical History Colon cancer Surgical History History of partial colectomy Social History Preferred Language: [place] Communication Ability: Effective Back Roll Lathe Operator Required: No Beliefs That Will Affect Care: None Current Living Situation: Significant Other Other Information That Helps Us Care for You: Yes (chemo [id number] (last dose on last thu) Feels Safe at Home: Yes Safety Concerns: Feels Safe At This Time Smoking Status: Never smoker Do You Dip or Chew Tobacco: Yes (1 can/week) ; Tobacco Cessation Education Requested by Patient: No Hx Alcohol Use: Yes Alcohol type: beer Hx Substance Use: No Review of Systems Review of Systems: All systems reviewed & are unremarkable except as noted in HPI & below Physical Exam Constitutional: WD/WN, vitals as above well groomed, cooperative and comfortable Eyes: PERRL, conjunctivae normal, anicteric sclerae ENMT: external ear and nose normal, oropharynx normal Respiratory: normal respiratory effort, lungs clear to auscultation Cardiovascular: RRR, no murmur, no edema Gastrointestinal (Abdomen): Inspection/Auscultation: + abdomen distended and + hypoactive bowel sounds Percussion/Palpation: abdomen nontender Skin: no rashes, warm and dry no jaundice Psychiatric: A+Ox3, euthymic affect Lymphatic: + lymphedema (trace edema on legs) Results & Data Vital Signs (Past 12 Hours) Vital Signs Temp Pulse Pulse Resp BP Pulse Ox 03/30/19 07:27 81 03/30/19 07:17 36.4 C L 71 16 115/78 99 03/30/19 04:18 36.5 C 83 20 110/70 96 03/29/19 23:45 37.1 C 87 18 115/74 100 03/29/19 23:13 83 20 120/89 99 (1) Colon cancer Colon location: unspecified part of colon Qualified Code(s): C18.9 - Malignant neoplasm of colon, unspecified (2) Ascites Ascites type: other type Qualified Code(s): R18.8 - Other ascites
[2019-03-30] MEDS: ALBUMIN 25% 50 ML IV SCH ×4 (11:14→15:38)
--- NOTE | 2019-03-30 15:15 | Ultrasound Report ---
ULTRASOUND GUIDED PARACENTESIS CLINICAL HISTORY: Ascites. COMPARISON STUDY: CT of the abdomen and pelvis March 29, 2019. PROCEDURE: The risks, benefits, and alternatives to the procedure were discussed with the patient inc luding the risk of bleeding, infection and injury to adjacent structures. The patient agreed to the procedure and informed written consent was obtained. Following real-time ultrasound localization, the skin of the left lower quadrant was prepped and draped. Following local anesthesia with Xylocaine, t he sheath paracentesis needle was inserted and approximately 4 liters of straw-colored fluid was david jose rafael by vacuum suction. The patient tolerated the procedure well and no immediate complications were evident. IMPRESSION: Ultrasound-guided paracentesis with removal of 4 liters of ascites. 1 L of ascites was s ent to the laboratory for analysis as ordered. Electronically signed by: Costa No M.D. 03/30/2019 3:13 PM
[2019-03-30 15:53] LABS: Glucose Peritoneal Fluid 98 mg/dl
[2019-03-30 15:57] LABS: LDH Peritoneal Fluid 59 U/L
[2019-03-30 16:30] LABS: Appearance Peritoneal Fluid CLOUDY; Color Peritoneal Fluid YELLOW; Eosinophils, Fluid 0 %; Lymphocytes, Fluid 6 %; Mono,Macrophage,Mesothelial 44 %; Neutrophils, Fluid 50 %; RBC Peritoneal Fluid (A) < 3000 /uL; WBC Peritoneal Fluid (A) 175 /ul (0-300)
--- NOTE | 2019-03-30 20:27 | Hospitalist Progress Note ---
Date of Service March 30, 2019 Assessment & Plan (1) Ascites: Presented with recent onset ascites associate with abdominal discomfort. GI consulted. Ascites could be secondary to colon cancer or cirrhosis with portal hypertension. Paracentesis performed-results pending. (2) Elevated lactic acid level: Serum lactate 2.2, repeat 1.1. Did not appear to be septic. Leukopenia probably secondary to chemotherapy. Tachycardia probably secondary to noninfectious etiologies (abdominal discomfort, malignancy, anemia). (3) Colon cancer: History of colon cancer with hepatic and pulmonary metastases. Chemotherapy per Dr. Rendon. (4) Malnutrition: Patient appears to be cachectic. He states that his weight has fluctuated. Recent weight gain probably due to ascites. Consult Mule Rider for dietary assessment and recommendations. (5) DVT prophylaxis: No anticoagulants because of paracentesis. SCD's. Ambulate. (6) Discharge planning issues: Anticipated discharge to home. Primary care follow-up with Radhames Millard PA-C. Heme / Onc follow-up with Dr. Rendon. Subjective Recheck for ascites and other problems. Patient seen in their room around 1520. Paracentesis performed this afternoon with significant improvement of abdominal discomfort. No fever or chills. No nausea or vomiting. Hungry and would like to resume diet. No diarrhea, melena, hematochezia. Review of Systems: Constitutional- no fever. Cardiac- no chest pain. Pulmonary- no cough or SOB. GI- as noted above - no urinary symptoms. Otherwise, as noted above. Physical Exam Constitutional: + cachectic; no acute distress Eyes: + anicteric sclerae Respiratory: no respiratory distress Auscultation: lungs clear to auscultation bilaterally Cardiovascular: Rate/Rhythm: regular rate and regular rhythm Heart Sounds: no gallop, no murmur and no cardiac rub Vessels: no JVD Extremities: + edema (trace pretibial, 1+ pedal); no calf tenderness Gastrointestinal (Abdomen): Inspection/Auscultation: + abdomen distended Percussion/Palpation: abdomen soft; abdomen nontender Skin: no rashes, warm and dry Psychiatric: Orientation: alert and oriented x 3 Results & Data Vital Signs (Past 12 Hours) Vital Signs Temp Pulse Resp BP Pulse Ox 03/30/19 15:45 36.1 C L 73 18 121/84 100 03/30/19 13:06 36.4 C L 69 18 128/88 100 03/30/19 12:09 36.5 C 72 18 118/81 100 03/30/19 11:25 36.3 C L 74 18 116/80 98 Laboratory Results 03/30/19 05:48 03/30/19 05:48 (1) Ascites Ascites type: other type Qualified Code(s): R18.8 - Other ascites (2) Colon cancer Colon location: unspecified part of colon Qualified Code(s): C18.9 - Malignant neoplasm of colon, unspecified
[2019-03-31] MEDS: HEPARIN 100 UNIT/ML 5ML FLUSH FLUSH PRN ×2 (06:04→19:21)
[2019-03-31 06:56] LABS: Basophils # (auto) 0.01 K/uL (0-0.2); Basophils % (auto) 0.3 %; Eosinophils # (auto) 0.24 K/uL (0-0.5); Eosinophils % (auto) 7.9 %; Hemoglobin 8.7 g/dL (14.0-18.0); Immature Granulocytes # (auto) 0.01 K/uL (0.00-0.02); Immature Granulocytes % (auto) 0.3 %; Lymphocytes # (auto) 0.52 K/uL (1.2-3.4); Lymphocytes % (auto) 17.1 %; Mean Corpuscular Hemoglobin 34.5 pg (25-34); Mean Corpuscular Hgb Conc 34.8 g/dL (32-36); Mean Corpuscular Volume 99.2 fL (80-100); Mean Platelet Volume 9.3 fL (7.4-10.4); Monocytes # (auto) 0.43 K/uL (0.11-0.59); Monocytes % (auto) 14.1 %; Neutrophils # (auto) 1.83 K/uL (1.4-6.5); Neutrophils % (auto) 60.3 %; Platelet Count 125 K/uL (130-400); RDW Coefficient of Variation 14.4 % (11.5-14.5); Red Blood Count 2.52 M/uL (4.7-6.1); White Blood Count 3.04 K/uL (4.8-10.8)
[2019-03-31 07:23] LABS: Albumin Level 2.3 gm/dl (3.4-5.0); BUN Creatinine Ratio 11.6 (10-20); Bilirubin Direct 0.2 mg/dl (0-0.2); Calcium 7.6 mg/dl (8.5-10.1); Creatinine Clr Calc Pharmacy 160.4 ml/min; Est GFR (African American) 139.3; Est GFR (Non-African American) 120.2; Potassium 3.8 mmol/L (3.5-5.1)
[2019-03-31 07:30] LABS: Albumin Globulin Ratio 0.9 (0.9-2); Bilirubin,Total 0.6 mg/dl (0.2-1); Globulin 2.5 gm/dl (2.5-4.0); Total Protein 4.8 gm/dl (6.4-8.2)
--- NOTE | 2019-03-31 12:21 | Gastroenterology Progress Note ---
Date of Service March 31, 2019 Assessment & Plan (1) Colon cancer: Present on Admission?: Yes (2) Liver metastasis: Present on Admission?: Yes (3) Ascites: Ascites more likely from early cirrhosis (evidence being thrombocytopenia, high SAAG, prior hx of increased alcohol) vs carcinomatosis. Ascites potentiated by high salt diet. Will review cytology when available. Management of ascites by: 1. Low salt diet - nutritional consult placed for instructions. 2. Diuretics: Recommend starting Furosemide 20mg (was on this a few days prior to admission), plus Spironolactone 50mg daily. 3. Will need CMP to check kidney function in one week. Order was placed in [facility], pt is aware. Bleeding prophalaxis in light of varices on imagin. Low dose beta tonya - recommend starting Nadolol 20mg BID. 2. Would defer EGD as presence of varices are documented by imaging. Recommend OP GI f/u for management of cirrhosis/ascites. Our office will contact the pt to arrange OP office visit. Present on Admission?: Yes Supervising Physician Co-Signing Physician Notes Attending attestation I have seen, examined this patient, and agree with the findings and above by our mid-level provider JayroFernanda Lay QUENTIN, with the following additions -Likely PHTn ascites -imroved Subjective Mr. Alireza Soler is a 58 yr old male admitted for fluid overload in the setting of liver and lung mets status post surgery/chemo. Pt and admits that he typically eats a very high sodium diet. Paracentesis. Today, feels well post 4L paracentesis yesterday. Ascitic fluid with 175 WBCs, 50% neutrophils => no SBP SAAG 2.3 - 0.6 = high SAAG of 1.8 suggestive of portal HTN Imaging: CT with large ascites (prior to paracentesis), question new metastatic liver lesion. Cholelithiasis. Review of Systems Constitutional: no fever, no chills and no weakness Eyes: no problem reported Ear, Nose, Mouth, Throat: no problem reported Respiratory: no cough and no dyspnea Cardiovascular: no chest pain and no dyspnea Gastrointestinal: + abdominal pain (improved after paracentesis, but still "sore"); no nausea and no vomiting Genitourinary: no dysuria and no hematuria Integumentary: no rash and no change in skin color Neurologic: no gait abnormality, no unsteadiness and no syncope Psychiatric: no behavioral changes, no depression and no hopelessness Hematologic / Lymphatic: no easy bleeding and no easy bruising Physical Exam Constitutional: WD/WN, vitals as above Eyes: PERRL, conjunctivae normal, anicteric sclerae ENMT: external ear and nose normal, oropharynx normal Neck: trachea midline, no thyromegaly Respiratory: normal respiratory effort, lungs clear to auscultation Cardiovascular: RRR, no murmur, no edema Gastrointestinal (Abdomen): Moderate, non tense ascites; abdomen non tender Skin: no rashes, warm and dry Neurologic: PERRL, EOMI, accommodation nl, no face palsy, no dysarthria Psychiatric: A+Ox3, euthymic affect Results & Data Vital Signs (Past 12 Hours) Vital Signs Temp Pulse Pulse Resp BP Pulse Ox 03/31/19 11:53 37.0 C 52 L 14 123/86 98 03/31/19 07:44 36.7 C 78 18 114/73 100 03/31/19 07:05 80 03/31/19 04:52 37.0 C 80 20 110/72 98 03/31/19 01:54 88 03/31/19 01:12 36.7 C 80 18 112/69 99 Laboratory Results See HPI Diagnostic Findings See HPI (1) Colon cancer Colon location: unspecified part of colon Qualified Code(s): C18.9 - Malignant neoplasm of colon, unspecified (2) Ascites Ascites type: other type Qualified Code(s): R18.8 - Other ascites
--- NOTE | 2019-03-31 18:22 | Hospitalist Progress Note ---
Date of Service March 31, 2019 Assessment & Plan (1) Ascites: Presented with recent onset ascites associate with abdominal discomfort. GI consulted. Ascites could be secondary to colon cancer or cirrhosis with portal hypertension. Paracentesis performed. WBCs 175 (50% neutrophils), RBCs less than 3000, total protein 1.1, albumin 0.6, LDH 59, glucose 98 SAAG = 1.8 suggested portal hypertension. Cytology pending. 2 g sodium diet recommended. Discharged on furosemide 20 mg twice daily, spironolactone 50 mg daily, nadolol 20 mg twice daily. Outpatient follow-up with GI. (2) Elevated lactic acid level: Serum lactate 2.2, repeat 1.1. Did not appear to be septic. Leukopenia probably secondary to chemotherapy. Tachycardia probably secondary to noninfectious etiologies (abdominal discomfort, malignancy, anemia). (3) Colon cancer: History of colon cancer with hepatic and pulmonary metastases. Chemotherapy per Dr. Rendon. (4) Malnutrition: Patient appears to be cachectic. He states that his weight has fluctuated. Underlying malignancy. Recent weight gain probably due to ascites. Director Of Contracts consulted for dietary assessment and recommendations. (5) DVT prophylaxis: No anticoagulants because of paracentesis. SCD's. Ambulate. (6) Discharge planning issues: Discharge to home. Primary care follow-up with Radhames Millard PA-C. Heme / Onc follow-up with Dr. Rendon. Serum chemistries should be monitored closely on diuretic therapy. Patient is already scheduled for weekly CBC and basic metabolic profile. Subjective Recheck for ascites and other problems. Patient seen in their room around 1700. Paracentesis performed yesterday with significant improvement of abdominal discomfort. No nausea or vomiting. No diarrhea, melena, hematochezia. No fever or chills. Ambulating. Anxious to go home. Review of Systems: Constitutional- no fever. Cardiac- no chest pain. Pulmonary- no cough or SOB. GI- as noted above - no urinary symptoms. Otherwise, as noted above. Physical Exam Constitutional: + cachectic; no acute distress Eyes: + anicteric sclerae Respiratory: no respiratory distress Auscultation: lungs clear to auscultation bilaterally Cardiovascular: Rate/Rhythm: regular rate and regular rhythm Heart Sounds: no gallop, no murmur and no cardiac rub Vessels: no JVD Extremities: + edema (trace pretibial, 1+ pedal); no calf tenderness Gastrointestinal (Abdomen): Inspection/Auscultation: + abdomen distended Percussion/Palpation: abdomen soft; abdomen nontender Skin: no rashes, warm and dry Psychiatric: Orientation: alert and oriented x 3 Results & Data Vital Signs (Past 12 Hours) Vital Signs Temp Pulse Pulse Resp BP Pulse Ox 03/31/19 15:15 85 03/31/19 15:07 37.1 C 84 16 117/77 98 03/31/19 11:53 37.0 C 52 L 14 123/86 98 03/31/19 07:44 36.7 C 78 18 114/73 100 03/31/19 07:05 80 Laboratory Results 03/31/19 06:00 03/31/19 06:00 (1) Ascites Ascites type: other type Qualified Code(s): R18.8 - Other ascites (2) Colon cancer Colon location: unspecified part of colon Qualified Code(s): C18.9 - Malignant neoplasm of colon, unspecified
--- NOTE | 2019-03-31 19:32 | Discharge Summary ---
Date of Service March 31, 2019 Admission HPI Per Admitting Provider History obtained from patient, family, and records. Medical history significant for colon cancer with liver and lung mets status post surgery, chemotherapy, chronic anemia (baseline hemoglobin 9-10), chronic thrombocytopenia, chronic hyponatremia. Recent confinement April 2014 under surgery service for colon perforation status post surgery. Right colon pathology later found to be invasive adenocarcinoma. Patient underwent chemotherapy. June 2017, patient found to have lung mets on imaging status post chemotherapy. July,, follow-up PET scan showed new metabolically active liver mets. MRI later showed metastatic disease left hepatic lobe. Additional chemotherapy given. December, PET/CT showed decreasing size metastatic nodule right lower lobe. New moderate large amount of ascites, diffuse mesenteric/omental edema hypervascularity secondary to cirrhosis or other systemic process or neoplasm. Splenomegaly also noted. Patient abdomen noted to be distended by home nurse about 2 weeks ago. No unusual abdominal pain. Progressive abdominal distention and weight gain of about 20 pounds noted subsequently. Increased diarrhea attributed to recent chemotherapy session. Patient seen on follow-up at [facility] Oncology office last week. Lasix prescription given for ascites, fluid retention. Hold chemotherapy interim as per outpatient note. Increasing abdominal distention and generalized abdominal pain with some nausea and emesis the last few days despite compliance with Lasix prescription. No fever, no chills. Diarrhea resolved as per patient. Increased bilateral leg swelling. Shortness of breath due to increased abdominal distention as per patient. No chest pain. Patient directed to the ER by PCPs office after consultation today. Principal Diagnosis ascites, recent onset, probably secondary to portal hypertension Discharge Data Allergies Allergy/AdvReac Type Severity Reaction Status Date / Time No Known Allergies Allergy Unverified 04/12/14 00:22 Consultations 03/29/19 21:44 ED Decision to Admit Stat 03/29/19 23:55 Consult Gastroenterology Routine Ordered Studies 03/29/19 19:45 CT abd pelvis IV con only Stat 03/30/19 08:00 US paracentesis abd w/image Routine Hospital Course (1) Ascites: Presented with recent onset ascites associate with abdominal discomfort. GI consulted. Ascites could be secondary to colon cancer or cirrhosis with portal hypertension. Paracentesis performed 03/30. WBCs 175 (50% neutrophils), RBCs less than 3000, total protein 1.1, albumin 0.6, LDH 59, glucose 98 SAAG = 1.8 suggested portal hypertension. Cytology pending. 2 g sodium diet recommended. Discharged on furosemide 20 mg twice daily, spironolactone 50 mg daily, nadolol 20 mg twice daily. Outpatient follow-up with GI. (2) Elevated lactic acid level: Serum lactate 2.2, repeat 1.1. Did not appear to be septic. Leukopenia probably secondary to chemotherapy. Tachycardia probably secondary to noninfectious etiologies (abdominal discomfort, malignancy, anemia). (3) Colon cancer: History of colon cancer with hepatic and pulmonary metastases. Cytology from peritoneal fluid pending. Chemotherapy per Dr. Rendon. (4) Malnutrition: Patient appears to be cachectic. He states that his weight has fluctuated. Underlying malignancy. Recent weight gain probably due to ascites. Senior Payroll Administrator consulted for dietary assessment and recommendations. (5) DVT prophylaxis: No anticoagulants because of paracentesis. SCD's. Ambulate. (6) Discharge planning issues: Discharge to home. Primary care follow-up with Radhames Millard PA-C. Heme / Onc follow-up with Dr. Rendon. Serum chemistries should be monitored closely on diuretic therapy. Patient is already scheduled for weekly CBC and basic metabolic profile. Total Time Total Time Spent Total Time Spent (In Minutes): 40 Discharge Plan Discharge Items Patient Disposition: Home - Self-Care Reason For Visit: ascites (fluid in abdomen) Discharge Diagnosis: ascites (fluid in abdomen) Condition on Discharge: Good Activity: Resume your previous activity Non-emergency contact: Primary Care Provider, Staffing Account Manager and Oncologist Call non-emergency contact if: you have any medication questions, your symptoms worsen and your temperature is above 101 Follow-up/Referrals: Fernanda Lay [Nurse Practitioner] - (Office will contact you with appointment.) Radhames Millard PA-C [Primary Care Provider] - (04/07/2019 9:20 AM Radhames Millard Jr., PA-C [facility]) Bruce Rendon MD [Hospitalist] - (04/22/2019 8:00 AM Bruce Rendon MD Hematology/Oncology [facility]) Diet: Low Sodium (2gm) Addtl Attending Provider Instructions: MEDICATION CHANGES: Start spironolactone (Aldactone) 50 mg daily for fluid retention. Start nadolol (Corgard) 20 mg twice a day for fluid retention. SUMMARY OF TEST RESULTS: Ultrasound showed fluid in abdomen. No sign of infection. PENDING TEST RESULTS: Cytology from abdominal fluid. RECOMMENDATIONS FOR FOLLOW-UP: PET scan as ordered. OTHER INSTRUCTIONS: Weigh yourself daily. Seek medical attention if you have: * temperature above 101 * chest pain or trouble breathing * abdominal pain, nausea, vomiting * diarrhea, dark stools or bloody stools * any unanswered questions or concerns Call 911 if symptoms are severe. Please take good care of yourself. Call if you have any questions or problems. You can reach a [facility] hospitalist on duty at [facility] 24 hours a day by calling [phone]. My cell # is [phone]. Pending Studies at Discharge: Yes (cytology from abdominal fluid) Stand-Alone Forms: My [facility], Smoking Cessation Medications and DC Order Prescriptions: New spironolactone 50 mg tablet 50 mg PO DAILY Qty: 30 RF: 5 nadolol 20 mg tablet 20 mg PO BID Qty: 60 RF: 5 Continued ranitidine HCl [Zantac] 150 mg Tablet 150 mg PO DAILY PRN (Reason: Acid Reflux) RF: 0 furosemide [Lasix] 20 mg Tablet 20 mg PO DAILY RF: 0 Discharge Orders: Discharge Order (Routine); Ordered 03/31/19 Ordered By: Radhames Hall/Other Patient Handouts: Tips Using Less Salt Admission Data Admit Date/Time: 03/29/19 22:55 Attending Provider: Radhames Herrmann Admit Provider: Nick Rojas Primary Care Provider: Radhames Millard Other Providers: Nick Rojas ; Fernanda Lay ; Larissa Deras ; Jeannie Curry ; Jason Arnold ; Michaela Pena ; Sanjuanita Irizarry ; Kalli Dickson ; Syed Hill ; Masood Barclay ; Karley Bower ; Ariadna Fuentes ; Marcy Salgado ; Haylie Giang ; Laura Keating Other Interventions: Discharge Summary Assessment (RN) Last Done: 03/31/19 18:52
--- NOTE | 2019-04-04 10:51 | Coding Query ---
MALNUTRITION To promote full compliance with coding requirements relating to patient care, physician participation is requested in all cases of floor polisher uncertainty. Please assist us with the question(s) below: Please place an X within the parenthesis (x). If other, please document: "Malnutrition" is documented in this record from 03/30/19 Progress Note through Discharge Summary. If possible, please check the box that provides a more specific diagnosis: ( ) Mild malnutrition ( ) Moderate malnutrition ( ) Severe malnutrition ( ) Protein malnutrition (kwashiorkor) ( ) Severe protein calorie malnutrition ( ) Protein calorie malnutrition, unspecified (x ) Other (please specify): Patient appeared to be malnourished, but no recent weight loss. Seen by Family Resource Specialist; don't believe that they offered a specific degree of malnutrition. Was this diagnosis present on admission? Please place an X within the parenthesis (x). ( ) Present on admission ( ) Not present on admission ( ) Unable to be clinically determined Thank you Eboni Alfaro [facility]
== END 2019-03-31 20:32 | disposition home or self-care (01) | DRG 433 ==
LOC: ED 18:45 → 2N 22:55

== ENCOUNTER 2019-10-10 11:26 | Inpatient (IN) ==
[2019-10-10] MEDS ORDERED: SODIUM CHLORIDE 0.9% 1000ML 1,000 ML IV SCH (12:15)
--- NOTE | 2019-10-10 12:17 | Emergency Department Note ---
Impression & Plan Hypotension, SOB (shortness of breath), Acute renal failure, Acute hyponatremia, Orthostasis ED Provider Note NAME: ROSA RODRIGUEZ AGE: 59 SEX: M : 1960 ARRIVES VIA: Walk-In INFORMANT: [Patient][jessica roa] ED PROVIDER(S): [Florin Miranda MD] CHIEF COMPLAINT: Shortness of breath HISTORY OF PRESENT ILLNESS: The patient is a 59-year-old male presents to the ED with complaints of shortness of breath and weakness. Patient states that he has noticed the symptoms for 1 week's time frame. There is no chest pain, he has not had fever or cough. No known coronavirus exposures. No vomiting or diarrhea. Patient states that when he walks only a short distance, he has to sit and catch his breath and then get back up and walk further. This is not typical for him. He also feels faint and near syncopal when he stands. The patient was seen by his doctor's office and referred to the ED for further work-up. At their office, his EKG was different than the previous and his sodium was noted to be low. The patient does have metastatic colon cancer. He has mets to his liver and lung. REVIEW OF SYSTEMS: See HPI for pertinent positives and negatives. A total of ten systems were reviewed and were otherwise negative. PMHx/PSHx: See Below SOCIAL HISTORY: See Below. PHYSICAL EXAM: GENERAL: Patient is in no acute distress. Frail appearing. HEENT: No acute trauma, normocephalic atraumatic, mucous membranes moist, no nasal congestion, no scleral icterus. NECK: No stridor, no adenopathy, no meningismus, trachea is midline. LUNGS: Clear to auscultation bilaterally, no wheeze, no rhonchi, breath sounds equal. HEART: Without murmurs gallops or rubs, regular rate and rhythm. ABDOMEN: Soft, nontender, bowel sounds positive, no hernias, no peritonitis. EXTREMITIES: No cyanosis or edema, full range of motion of all the joints without pain or difficulty, no signs for acute trauma. NEUROLOGIC: Oriented x 3, no acute motor or sensory deficits, no focal weakness. SKIN: No rash, no jaundice, no diaphoresis. DIFFERENTIAL DIAGNOSIS: Infection, dehydration, CT, metabolic abnormality, renal failure, pneumonia, PE, hypo/hyperglycemia, electrolyte disturbance, anemia, hypoxia, cardiac sources, intracerebral event, toxicologic, neurologic, as well as other pathologies. EMERGENCY DEPARTMENT COURSE/PROCEDURES: ECG: Indication is weakness. EKG shows a normal sinus rhythm with some inverted T waves in the anterior and lateral leads. There is no evidence for ST elevation. There are no PVCs. The rate is 60. The QTc is 280. Compared to an EKG from 29 March 2019, the T wave changes are new. Continuous Cardiac Monitoring: An order was placed for continuous cardiac monitoring. The monitor shows a rate of 54 with sinus bradycardia. Orthostatic vital signs were positive. Critical Care Note: I have personally spent greater than 36 minutes of critical care time in the direct management of this patient. This includes bedside care, interpretation of diagnostic studies, and testing, discussion with consultants, patient, and family members, and other required patient management activities. This 36 minutes is in excess of all separately billable procedures. MEDICAL DECISION MAKING: There is no leukocytosis. The patient is somewhat anemic, this appears baseline looking back at previous testing. There is a normal platelet count. Renal panel testing shows a low sodium at 124. There is evidence for acute renal failure with a creatinine of 2.35. Lactic acid level is not elevated making sev ere sepsis/infection less likely. Alk phos was elevated, no other liver enzyme elevation noted. The chest film shows some potential bilateral atelectasis versus pneumonia. Chest CT shows evidence for worsening of his metastatic disease, potential concomitant pneumonia in the same area was thought possible. Orthostatic vital signs were positive. The patient received IV saline, he was given 1 L IV. He is currently resting comfortably. The patient presents short of breath, he feels weak and lightheaded. On work- up, he is in acute renal failure, he is dehydrated. He does have worsening pu lmonary metastatic disease as per his CT. He is hyponatremic. Given his findings, I do think a hospital stay is warranted. I did speak to the patient and medical case worker. The on-call hospitalist has been consulted. Of note, the patient's blood pressure does appear to be improved since his liter of fluid was infused. Past Med/Surg History Medical History Anemia (Chronic) Appendicitis (Resolved) Colon cancer (Chronic) Liver metastasis (Chronic) Perforation of colon (Resolved 04/12/14) Small bowel obstruction (Resolved) Surgical History History of partial colectomy (Chronic) Family History Other No significant family history Social History Preferred Language: Uzbek Communication Ability: Effective Flight Service Specialist Required: No Beliefs That Will Affect Care: None Current Living Situation: Significant Other Feels Safe at Home: Yes Smoking Status: Never smoker Hx Alcohol Use: Yes Alcohol type: beer Hx Substance Use: No Allergies Allergies Allergy/AdvReac Type Severity Reaction Status Date / Time No Known Allergies Allergy Unverified 10/10/19 13:42 Home Meds Home Medications Medication Instructions Recorded Confirmed furosemide [Lasix] 20 mg PO QAM 03/29/19 10/10/19 spironolactone 50 mg PO QAM 04/04/19 10/10/19 nadolol 20 mg PO BID 10/04/19 10/10/19 tramadol-acetaminophen 50 mg PO BID 10/04/19 10/10/19 Results & Data (ED) Vital Signs Vital Signs - 24 hr 10/10/19 11:38 10/10/19 12:04 10/10/19 12:06 Temperature 36.4 C L Temperature Source Oral Pulse Rate - Lying Pulse Rate - Sitting Pulse Rate - Standing Pulse Rate 66 58 L Pulse Rate from SpO2 Sensor Respiratory Rate 22 14 Respiratory Effort / Characteristics Non-Labored Non-Labored Spontaneous Respiratory Depth Normal Normal Blood Pressure - Lying Blood Pressure - Sitting Blood Pressure- Standing Blood Pressure 83/53 L Blood Pressure Mean 63 Blood Pressure Position Sitting Pulse Oximetry 100 96 Oxygen Delivery Method Room Air Room Air Sepsis Recent Fever Within 48 Hours No Sepsis New/Unexplained Change in Mental Status No Sepsis Action Taken by Nursing No Action Required 10/10/19 12:10 10/10/19 12:17 10/10/19 12:20 Temperature Temperature Source Pulse Rate - Lying Pulse Rate - Sitting Pulse Rate - Standing Pulse Rate 58 L 56 L Pulse Rate from SpO2 Sensor Respiratory Rate 15 17 Respiratory Effort / Characteristics Respiratory Depth Blood Pressure - Lying Blood Pressure - Sitting Blood Pressure- Standing Blood Pressure Blood Pressure Mean Blood Pressure Position Pulse Oximetry 96 Oxygen Delivery Method Room Air Sepsis Recent Fever Within 48 Hours Sepsis New/Unexplained Change in Mental Status Sepsis Action Taken by Nursing 10/10/19 12:22 10/10/19 12:23 10/10/19 12:30 Temperature Temperature Source Pulse Rate - Lying Pulse Rate - Sitting Pulse Rate - Standing Pulse Rate 59 L 66 54 L Pulse Rate from SpO2 Sensor Respiratory Rate 18 18 14 Respiratory Effort / Characteristics Respiratory Depth Blood Pressure - Lying Blood Pressure - Sitting Blood Pressure- Standing Blood Pressure 102/63 79/48 L Blood Pressure Mean 72 54 Blood Pressure Position Pulse Oximetry Oxygen Delivery Method Sepsis Recent Fever Within 48 Hours Sepsis New/Unexplained Change in Mental Status Sepsis Action Taken by Nursing 10/10/19 12:40 10/10/19 12:48 10/10/19 12:50 Temperature Temperature Source Pulse Rate - Lying 55 L Pulse Rate - Sitting 60 Pulse Rate - Standing 73 Pulse Rate 55 L 54 L Pulse Rate from SpO2 Sensor Respiratory Rate 13 17 Respiratory Effort / Characteristics Respiratory Depth Blood Pressure - Lying 101/58 L Blood Pressure - Sitting 102/60 Blood Pressure- Standing 79/48 L Blood Pressure Blood Pressure Mean Blood Pressure Position Pulse Oximetry Oxygen Delivery Method Sepsis Recent Fever Within 48 Hours Sepsis New/Unexplained Change in Mental Status Sepsis Action Taken by Nursing 10/10/19 13:00 10/10/19 13:08 10/10/19 13:10 Temperature Temperature Source Pulse Rate - Lying Pulse Rate - Sitting Pulse Rate - Standing Pulse Rate 52 L 54 L 51 L Pulse Rate from SpO2 Sensor Respiratory Rate 12 22 18 Respiratory Effort / Characteristics Respiratory Depth Blood Pressure - Lying Blood Pressure - Sitting Blood Pressure- Standing Blood Pressure 90/64 L Blood Pressure Mean 76 Blood Pressure Position Pulse Oximetry Oxygen Delivery Method Sepsis Recent Fever Within 48 Hours Sepsis New/Unexplained Change in Mental Status Sepsis Action Taken by Nursing 10/10/19 13:20 10/10/19 13:30 10/10/19 13:31 Temperature Temperature Source Pulse Rate - Lying Pulse Rate - Sitting Pulse Rate - Standing Pulse Rate 53 L 54 L 53 L Pulse Rate from SpO2 Sensor 54 L 53 L Respiratory Rate 12 12 14 Respiratory Effort / Characteristics Respiratory Depth Blood Pressure - Lying Blood Pressure - Sitting Blood Pressure- Standing Blood Pressure 99/67 L Blood Pressure Mean 80 Blood Pressure Position Pulse Oximetry 100 100 Oxygen Delivery Method Sepsis Recent Fever Within 48 Hours Sepsis New/Unexplained Change in Mental Status Sepsis Action Taken by Nursing 10/10/19 13:40 10/10/19 13:50 10/10/19 14:00 Temperature Temperature Source Pulse Rate - Lying Pulse Rate - Sitting Pulse Rate - Standing Pulse Rate 53 L 53 L 54 L Pulse Rate from SpO2 Sensor 53 L 53 L 54 L Respiratory Rate 14 16 13 Respiratory Effort / Characteristics Respiratory Depth Blood Pressure - Lying Blood Pressure - Sitting Blood Pressure- Standing Blood Pressure 127/71 Blood Pressure Mean 93 Blood Pressure Position Pulse Oximetry 100 100 99 Oxygen Delivery Method Sepsis Recent Fever Within 48 Hours Sepsis New/Unexplained Change in Mental Status Sepsis Action Taken by Nursing 10/10/19 14:17 10/10/19 14:20 10/10/19 14:30 Temperature Temperature Source Pulse Rate - Lying Pulse Rate - Sitting Pulse Rate - Standing Pulse Rate 56 L 53 L Pulse Rate from SpO2 Sensor 57 L 55 L 53 L Respiratory Rate 19 18 Respiratory Effort / Characteristics Respiratory Depth Blood Pressure - Lying Blood Pressure - Sitting Blood Pressure- Standing Blood Pressure Blood Pressure Mean Blood Pressure Position Pulse Oximetry 99 100 Oxygen Delivery Method Sepsis Recent Fever Within 48 Hours Sepsis New/Unexplained Change in Mental Status Sepsis Action Taken by Nursing 10/10/19 14:31 10/10/19 14:40 10/10/19 14:50 Temperature Temperature Source Pulse Rate - Lying Pulse Rate - Sitting Pulse Rate - Standing Pulse Rate 53 L 53 L 54 L Pulse Rate from SpO2 Sensor 54 L 54 L Respiratory Rate 14 14 15 Respiratory Effort / Characteristics Respiratory Depth Blood Pressure - Lying Blood Pressure - Sitting Blood Pressure- Standing Blood Pressure 107/66 Blood Pressure Mean 79 Blood Pressure Position Pulse Oximetry 100 98 Oxygen Delivery Method Sepsis Recent Fever Within 48 Hours Sepsis New/Unexplained Change in Mental Status Sepsis Action Taken by Nursing 10/10/19 15:00 10/10/19 15:10 10/10/19 15:20 Temperature Temperature Source Pulse Rate - Lying Pulse Rate - Sitting Pulse Rate - Standing Pulse Rate 53 L 54 L 52 L Pulse Rate from SpO2 Sensor 53 L 54 L 52 L Respiratory Rate 17 16 20 Respiratory Effort / Characteristics Respiratory Depth Blood Pressure - Lying Blood Pressure - Sitting Blood Pressure- Standing Blood Pressure 98/71 L Blood Pressure Mean 83 Blood Pressure Position Pulse Oximetry 100 100 100 Oxygen Delivery Method Sepsis Recent Fever Within 48 Hours Sepsis New/Unexplained Change in Mental Status Sepsis Action Taken by Nursing 10/10/19 15:30 10/10/19 15:32 10/10/19 15:40 Temperature Temperature Source Pulse Rate - Lying Pulse Rate - Sitting Pulse Rate - Standing Pulse Rate 54 L 55 L 53 L Pulse Rate from SpO2 Sensor 57 L 55 L 53 L Respiratory Rate 17 19 15 Respiratory Effort / Characteristics Respiratory Depth Blood Pressure - Lying Blood Pressure - Sitting Blood Pressure- Standing Blood Pressure 97/49 L Blood Pressure Mean 85 Blood Pressure Position Pulse Oximetry 100 100 Oxygen Delivery Method Sepsis Recent Fever Within 48 Hours Sepsis New/Unexplained Change in Mental Status Sepsis Action Taken by Nursing 10/10/19 15:50 10/10/19 16:00 10/10/19 16:10 Temperature Temperature Source Pulse Rate - Lying Pulse Rate - Sitting Pulse Rate - Standing Pulse Rate 55 L 57 L 53 L Pulse Rate from SpO2 Sensor 56 L 58 L 53 L Respiratory Rate 18 17 17 Respiratory Effort / Characteristics Respiratory Depth Blood Pressure - Lying Blood Pressure - Sitting Blood Pressure- Standing Blood Pressure 101/67 Blood Pressure Mean 81 Blood Pressure Position Pulse Oximetry 100 100 100 Oxygen Delivery Method Sepsis Recent Fever Within 48 Hours Sepsis New/Unexplained Change in Mental Status Sepsis Action Taken by Nursing 10/10/19 16:20 10/10/19 16:30 10/10/19 16:40 Temperature Temperature Source Pulse Rate - Lying Pulse Rate - Sitting Pulse Rate - Standing Pulse Rate 54 L 54 L 54 L Pulse Rate from SpO2 Sensor 54 L 53 L 54 L Respiratory Rate 15 18 14 Respiratory Effort / Characteristics Respiratory Depth Blood Pressure - Lying Blood Pressure - Sitting Blood Pressure- Standing Blood Pressure 109/69 Blood Pressure Mean 83 Blood Pressure Position Pulse Oximetry 100 100 100 Oxygen Delivery Method Sepsis Recent Fever Within 48 Hours Sepsis New/Unexplained Change in Mental Status Sepsis Action Taken by Nursing 10/10/19 16:50 10/10/19 17:00 10/10/19 17:10 Temperature Temperature Source Pulse Rate - Lying Pulse Rate - Sitting Pulse Rate - Standing Pulse Rate 54 L 54 L 54 L Pulse Rate from SpO2 Sensor 54 L 54 L 55 L Respiratory Rate 19 18 14 Respiratory Effort / Characteristics Respiratory Depth Blood Pressure - Lying Blood Pressure - Sitting Blood Pressure- Standing Blood Pressure 105/69 Blood Pressure Mean 81 Blood Pressure Position Pulse Oximetry 100 100 100 Oxygen Delivery Method Sepsis Recent Fever Within 48 Hours Sepsis New/Unexplained Change in Mental Status Sepsis Action Taken by Nursing 10/10/19 17:20 10/10/19 17:30 10/10/19 17:40 Temperature Temperature Source Pulse Rate - Lying Pulse Rate - Sitting Pulse Rate - Standing Pulse Rate 60 60 55 L Pulse Rate from SpO2 Sensor 58 L 59 L 54 L Respiratory Rate 14 15 16 Respiratory Effort / Characteristics Respiratory Depth Blood Pressure - Lying Blood Pressure - Sitting Blood Pressure- Standing Blood Pressure 96/65 L Blood Pressure Mean 71 Blood Pressure Position Pulse Oximetry 100 100 Oxygen Delivery Method Sepsis Recent Fever Within 48 Hours Sepsis New/Unexplained Change in Mental Status Sepsis Action Taken by Nursing 10/10/19 17:50 10/10/19 18:00 Temperature Temperature Source Pulse Rate - Lying Pulse Rate - Sitting Pulse Rate - Standing Pulse Rate 55 L 52 L Pulse Rate from SpO2 Sensor 59 L 52 L Respiratory Rate 17 14 Respiratory Effort / Characteristics Respiratory Depth Blood Pressure - Lying Blood Pressure - Sitting Blood Pressure- Standing Blood Pressure 99/76 L Blood Pressure Mean 92 Blood Pressure Position Pulse Oximetry 94 100 Oxygen Delivery Method Sepsis Recent Fever Within 48 Hours Sepsis New/Unexplained Change in Mental Status Sepsis Action Taken by [facility] Medications Current Medication List: was personally reviewed by me Laboratory Data Attestation: I reviewed the patient's lab results. Result diagrams: 10/10/19 03:43 10/10/19 03:43 Lab Results 10/10/19 10/10/19 10/10/19 Range/Units 03:43 03:43 12:45 WBC 9.90 (4.8-10.8) K/uL RBC 3.13 L (4.7-6.1) M/uL Hgb 10.3 L (14.0-18.0) g/dL Hct 27.9 L (42-52) % MCV 89.1 (80-100) fL MCH 32.9 (25-34) pg MCHC 36.9 H (32-36) g/dL RDW Std Deviation 45.5 (36.4-46.3) fL RDW Coeff of Selam 14.0 (11.5-14.5) % Plt Count 227 (130-400) K/uL MPV 9.6 (7.4-10.4) fL Immature Gran % (Auto) 0.2 % Neut % (Auto) 81.7 % Lymph % (Auto) 4.8 % Gates % (Auto) 11.3 % Eos % (Auto) 1.8 % Baso % (Auto) 0.2 % Immature Gran # (Auto) 0.02 (0.00-0.02) K/uL Neut # (Auto) 8.08 H (1.4-6.5) K/uL Lymph # (Auto) 0.48 L (1.2-3.4) K/uL Gates # (Auto) 1.12 H (0.11-0.59) K/uL Eos # (Auto) 0.18 (0-0.5) K/uL Baso # (Auto) 0.02 (0-0.2) K/uL Sodium 124 L (136-145) mmol/L Potassium 3.9 (3.5-5.1) mmol/L Chloride 88 L (98-107) mmol/L Carbon Dioxide 26 (21-32) mmol/L Anion Gap 10.0 (3-11) BUN 51 H (7-18) mg/dl Creatinine 2.35 H (0.6-1.4) mg/dl Est Cr Clr Drug Dosing Not Reportable Est GFR ( Amer) 34.3 Est GFR (Non-Af Amer) 29.6 BUN/Creatinine Ratio 21.5 H (10-20) Glucose 117 H (70-99) mg/dl Lactate 1.2 (0.4-2.0) mmol/L Calcium 8.4 L (8.5-10.1) mg/dl Magnesium 2.0 (1.8-2.4) mg/dl Total Bilirubin 3.6 H (0.2-1) mg/dl AST 34 (15-37) U/L ALT 12 (12-78) U/L Alkaline Phosphatase 261 H (45-117) U/L Troponin I < 0.015 (0-0.045) ng/ml Total Protein 7.0 (6.4-8.2) gm/dl Albumin 2.5 L (3.4-5.0) gm/dl Globulin 4.5 H (2.5-4.0) gm/dl Albumin/Globulin Ratio 0.6 L (0.9-2) TSH 3.910 (0.300-4.500) uIu/ml COVID-19 PCR (Negative) SARS-CoV-2 RNA (RT-PCR) 10/10/19 10/10/19 10/10/19 Range/Units 15:13 15:13 17:52 WBC (4.8-10.8) K/uL RBC (4.7-6.1) M/uL Hgb (14.0-18.0) g/dL Hct (42-52) % MCV (80-100) fL MCH (25-34) pg MCHC (32-36) g/dL RDW Std Deviation (36.4-46.3) fL RDW Coeff of Selam (11.5-14.5) % Plt Count (130-400) K/uL MPV (7.4-10.4) fL Immature Gran % (Auto) % Neut % (Auto) % Lymph % (Auto) % Gates % (Auto) % Eos % (Auto) % Baso % (Auto) % Immature Gran # (Auto) (0.00-0.02) K/uL Neut # (Auto) (1.4-6.5) K/uL Lymph # (Auto) (1.2-3.4) K/uL Gates # (Auto) (0.11-0.59) K/uL Eos # (Auto) (0-0.5) K/uL Baso # (Auto) (0-0.2) K/uL Sodium (136-145) mmol/L Potassium (3.5-5.1) mmol/L Chloride (98-107) mmol/L Carbon Dioxide (21-32) mmol/L Anion Gap (3-11) BUN (7-18) mg/dl Creatinine (0.6-1.4) mg/dl Est Cr Clr Drug Dosing Est GFR ( Amer) Est GFR (Non-Af Amer) BUN/Creatinine Ratio (10-20) Glucose (70-99) mg/dl Lactate (0.4-2.0) mmol/L Calcium (8.5-10.1) mg/dl Magnesium (1.8-2.4) mg/dl Total Bilirubin (0.2-1) mg/dl AST (15-37) U/L ALT (12-78) U/L Alkaline Phosphatase (45-117) U/L Troponin I < 0.015 (0-0.045) ng/ml Total Protein (6.4-8.2) gm/dl Albumin (3.4-5.0) gm/dl Globulin (2.5-4.0) gm/dl Albumin/Globulin Ratio (0.9-2) TSH (0.300-4.500) uIu/ml COVID-19 PCR NEGATIVE (Negative) SARS-CoV-2 RNA (RT-PCR) Cancelled Administered Medications Discontinued Medications Sodium Chloride (Nss 1000ml) 1,000 mls @ 999 mls/hr IV .[id number] GARRETT Stop: 10/10/19 13:15 Last Infusion: 10/10/19 13:48 Dose: 0 mls/hr Documented by: [id number] Admin: 10/10/19 12:42 Dose: 999 mls/hr Documented by: [id number] Albumin Human (Albumin 25%) 50 mls @ 50 mls/hr IV ONE ONE Stop: 10/10/19 18:29 Last Infusion: 10/10/19 18:54 Dose: 0 mls/hr Documented by: [id number] Admin: 10/10/19 17:57 Dose: 50 mls/hr Documented by: [id number] Cefepime HCl (Maxipime) 20 mls @ 5 mls/min IV NOW STA Stop: 10/10/19 17:59 Last Admin: 10/10/19 18:54 Dose: 5 mls/min Documented by: [id number] Midodrine (Proamatine) 5 mg PO TID@0800,1200,1700 STA Stop: 10/10/19 17:44 Last Admin: 10/10/19 17:57 Dose: 5 mg Documented by: [id number] Imaging Data Radiologist's Impression: XR chest 1V portable HISTORY: 59 years-old Male weakness acute weakness COMPARISON: Chest radiograph 04/01/2019, CT abdomen and pelvis 03/29/2019. TECHNIQUE: Portable AP view of the chest FINDINGS: Cardiomediastinal and hilar silhouettes are within normal limits. Right IJ Tfewvn-h-[id number] catheter is unchanged. Reticular nodular opacities of the right greater than left lung bases. Additional nodular opacities project of the bilateral upper lung zones which predominantly appear to be subcentimeter. The nodular opacities within the right lung base appear to have progressed. No pneumothorax, pleural effusion or overt pulmonary edema. Degenerative changes of the shoulders and spine. IMPRESSION: Bibasilar reticular nodular opacities, right greater than left have progres sively worsened from comparison. Additionally, there are scattered pulmonary nodules of the upper lung zones. These findings could be correlated with a follow-up CT of the chest. CT chest wo con CT DOSE: 278.25 mGy.cm CLINICAL HISTORY: 59 years-old Male with sob, hist colon cancer. Acute shortness of breath in a patient with history of colon cancer. TECHNIQUE: Multiaxial CT images of the chest were performed without contrast. A dose lowering technique was utilized adhering to the principles of ALARA. COMPARISON: Chest radiograph of same day, CT abdomen and pelvis 03/29/2019 FINDINGS: Atrophic appearing thyroid. Prominent AP window lymph nodes measure up to 9 mm. Additionally, there are prominent subcarinal and hilar lymph nodes also present. Heart is normal in size without pericardial effusion. Coronary artery calcifications. No thoracic aortic aneurysm. Right IJ Lvrhwf-b-Fhlh catheter distal tip terminates in the mid SVC. Resolution of the previously described trace left pleural effusion. No pneumothorax or pleural effusion. No overt pulmonary edema. Multilobar and multi segmental distribution of bibasilar predominant solid pulmonary nodules have increased from comparison measuring up to 1.6 cm within the right lower lobe and 2.1 x 2.7 cm within the right lower lobe. Multisegmental tree-in-bud nodules are also noted within all lobes bilaterally with intermixed groundglass opacities. Moderate tracheobronchial secretions. Moderate to large amount of upper abdominal ascites with omental edema/nodularity. Paraesophageal varices with distal esophageal wall thickening. There is increased size of a central hepatic mass measuring 6.0 x 5.6 cm, previously measured at approximately 3.3 cm. Partially calcified lesion of the right adrenal gland. Gynecomastia. No acute fracture or suspicious bone lesion identified. IMPRESSION: 1. Progressively worsened bibasilar predominant solid pulmonary nodules are compatible with pulmonary metastasis.. 2. Progressive hepatic metastatic disease with abdominal ascites and upper a bdominal omental nodularity, possibly reflective of omental carcinomatosis. 3. Multisegmental bilateral scattered tree-in-bud nodules with intermixed groundglass densities, most pronounced within the basal left lower lobe may represent endobronchial spread of neoplasm versus superimposed infectious or inflammatory bronchiolitis/pneumonitis. 4. Mildly prominent mediastinal lymph nodes Blood Pressure Blood Pressure Findings: Low blood pressure Discharge Plan Visit Data Chief Complaint: Shortness of Breath/Dyspnea Stated Complaint: DR REF - SOB,LOW BP/SODIUM,TROUBLE WALKING ED Provider: Florin Miranda Discharge Problem: Hypotension, SOB (shortness of breath), Acute renal failure, Acute hyponatremia, Orthostasis Patient Disposition: Being Evaluated by Hospitalist Condition: Fair Discharge Instructions Interventions: ED Discharge Assessment Last Done: 10/10/19 19:33 Discharge Problem: Hypotension Qualifiers: Hypotension type: unspecified hypotension type Qualified Code(s): I95.9 - Hypotension, unspecified Acute renal failure Qualifiers: Acute renal failure type: unspecified Qualified Code(s): N17.9 - Acute kidney failure, unspecified
--- NOTE | 2019-10-10 12:55 | XRay Report ---
XR chest 1V portable HISTORY: 59 years-old Male weakness acute weakness COMPARISON: Chest radiograph 04/01/2019, CT abdomen and pelvis 03/29/2019. TECHNIQUE: Portable AP view of the chest FINDINGS: Cardiomediastinal and hilar silhouettes are within normal limits. Right IJ Lbakzm-b-Zllg catheter is unchanged. Reticular nodular opacities of the right greater than left lung bases. Additional nodular opacities project of the bilateral upper lung zones which predominantly appear to be subcentimeter. T he nodular opacities within the right lung base appear to have progressed. No pneumothorax, pleural e ffusion or overt pulmonary edema. Degenerative changes of the shoulders and spine. IMPRESSION: Bibasilar reticular nodular opacities, right greater than left have progressively worsened from randee rison. Additionally, there are scattered pulmonary nodules of the upper lung zones. These findings co uld be correlated with a follow-up CT of the chest. ACT 112: Negative or not required by law. The above report was generated using voice recognition software. It may contain grammatical, syntax o r spelling errors. Electronically signed by: Michael Lang M.D. 10/10/2019 12:54 PM
[2019-10-10 13:05] LABS: Basophils # (auto) 0.02 K/uL (0-0.2); Basophils % (auto) 0.2 %; Eosinophils # (auto) 0.18 K/uL (0-0.5); Eosinophils % (auto) 1.8 %; Hematocrit (blood only) 27.9 % (42-52); Hemoglobin 10.3 g/dL (14.0-18.0); Immature Granulocytes # (auto) 0.02 K/uL (0.00-0.02); Immature Granulocytes % (auto) 0.2 %; Lymphocytes # (auto) 0.48 K/uL (1.2-3.4); Lymphocytes % (auto) 4.8 %; Mean Corpuscular Hemoglobin 32.9 pg (25-34); Mean Corpuscular Hgb Conc 36.9 g/dL (32-36); Mean Corpuscular Volume 89.1 fL (80-100); Mean Platelet Volume 9.6 fL (7.4-10.4); Monocytes # (auto) 1.12 K/uL (0.11-0.59); Monocytes % (auto) 11.3 %; Neutrophils # (auto) 8.08 K/uL (1.4-6.5); Neutrophils % (auto) 81.7 %; Platelet Count 227 K/uL (130-400); RDW Standard Deviation 45.5 fL (36.4-46.3); Red Blood Count 3.13 M/uL (4.7-6.1)
[2019-10-10 13:22] LABS: Alanine Aminotransferase 12 U/L (12-78); Albumin Level 2.5 gm/dl (3.4-5.0); Aspartate Aminotransferase 34 U/L (15-37); BUN Creatinine Ratio 21.5 (10-20); Blood Urea Nitrogen 51 mg/dl (7-18); Calcium 8.4 mg/dl (8.5-10.1); Carbon Dioxide 26 mmol/L (21-32); Chloride 88 mmol/L (98-107); Est GFR (African American) 34.3; Est GFR (Non-African American) 29.6; Glucose 117 mg/dl (70-99); Potassium 3.9 mmol/L (3.5-5.1); Sodium 124 mmol/L (136-145)
[2019-10-10 13:33] LABS: Albumin Globulin Ratio 0.6 (0.9-2); Alkaline Phosphatase 261 U/L (45-117); Bilirubin,Total 3.6 mg/dl (0.2-1); Globulin 4.5 gm/dl (2.5-4.0); Troponin I < 0.015 ng/ml (0-0.045)
--- NOTE | 2019-10-10 14:27 | CT Scan Report ---
CT chest wo con CT DOSE: 278.25 mGy.cm CLINICAL HISTORY: 59 years-old Male with sob, hist colon cancer. Acute shortness of breath in a philip ent with history of colon cancer. TECHNIQUE: Multiaxial CT images of the chest were performed without contrast. A dose lowering techni que was utilized adhering to the principles of ALARA. COMPARISON: Chest radiograph of same day, CT abdomen and pelvis 03/29/2019 FINDINGS: Atrophic appearing thyroid. Prominent AP window lymph nodes measure up to 9 mm. Additionally, there a re prominent subcarinal and hilar lymph nodes also present. Heart is normal in size without pericardi al effusion. Coronary artery calcifications. No thoracic aortic aneurysm. Right IJ Etmzsl-m-Mnve cath eter distal tip terminates in the mid SVC. Resolution of the previously described trace left pleural effusion. No pneumothorax or pleural effusi on. No overt pulmonary edema. Multilobar and multi segmental distribution of bibasilar predominant so lid pulmonary nodules have increased from comparison measuring up to 1.6 cm within the right lower lo be and 2.1 x 2.7 cm within the right lower lobe. Multisegmental tree-in-bud nodules are also noted wi thin all lobes bilaterally with intermixed groundglass opacities. Moderate tracheobronchial secretion s. Moderate to large amount of upper abdominal ascites with omental edema/nodularity. Paraesophageal eunice ices with distal esophageal wall thickening. There is increased size of a central hepatic mass measur ing 6.0 x 5.6 cm, previously measured at approximately 3.3 cm. Partially calcified lesion of the righ t adrenal gland. Gynecomastia. No acute fracture or suspicious bone lesion identified. IMPRESSION: 1. Progressively worsened bibasilar predominant solid pulmonary nodules are compatible with pulmonary metastasis.. 2. Progressive hepatic metastatic disease with abdominal ascites and upper abdominal omental nodulari ty, possibly reflective of omental carcinomatosis. 3. Multisegmental bilateral scattered tree-in-bud nodules with intermixed groundglass densities, most pronounced within the basal left lower lobe may represent endobronchial spread of neoplasm versus gillis perimposed infectious or inflammatory bronchiolitis/pneumonitis. 4. Mildly prominent mediastinal lymph nodes ACT 112: Negative or not required by law. Electronically signed by: Michael Lang M.D. 10/10/2019 2:26 PM
[2019-10-10] MEDS ORDERED: ALBUMIN 25% 50 ML IV ONE (17:30)
[2019-10-10] MEDS ORDERED: MIDODRINE HCL 2.5 MG TAB PO STA (17:43)
[2019-10-10] MEDS ORDERED: CEFEPIME CONSULT ACTIVE SCH (17:52)
[2019-10-10] MEDS ORDERED: CEFEPIME 20 ML IV STA (17:56)
--- NOTE | 2019-10-10 17:56 | History & Physical Report ---
Date of Service October 10, 2019 Assessment & Plan (1) JOLANTA (acute kidney injury): Creatinine 2.35, previously getting less than 1 -Recently underwent paracentesis with 5 L of fluid removed, possibly hypovolemic ? 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 -Also possibly be due to hepatorenal syndrome given his history of cirrhosis/liver disease -We will obtain urine sodium, urine osm, serum Osmo -Received a liter of normal saline in the ED -Urology consulted -We will continue to closely monitor (3) Hypotension: -Patient presented to the emergency room with hypotension, 80s over 50s -In the setting of cirrhosis/liver disease -Received 1 L of normal saline -We will continue with IV albumin, and will start Midodrine 5 mg 3 times daily -Discussed with nephrology, will hold Aldactone (4) Shortness of breath: -Patient satting 100% on room air, does not require any supplemental oxygen -Reports dyspnea with exertion, feels well at rest -CT chest obtained, shows metastases, possible inflammation, possible obstructive infection -Patient reports history of sinusitis, on my exam has a cough, reports clear/white sputum production -We will start empiric antibiotic treatment and will continue to closely monitor -Sputum culture ordered, blood culture pending -Covid -negative Abnormal EKG findings -Patient denies any chest pain -Troponin negative -We will continue to monitor on telemetry and will repeat troponin (5) Colon cancer: -First diagnosed in 2013, has metastases to lung and liver -Follows with Dr. Rendon, last seen on October 07, 2019 -At that time discussed no further treatment, as his metastatic cancer is incura ble and patient has a very poor prognosis -We will obtain palliative medicine consult (6) Liver metastasis: (7) Ascites: -On October 03, underwent paracentesis, with 5 L of ascitic fluid removed DVT prophylaxis: SCDs and subcu heparin CODE STATUS: DNR/DNI, discussed with the patient at the bedside patient is interested in other procedures (cardiac cath ) that can prolong his life but declines resuscitation and intubation History of Present Illness Chief Complaint: Shortness of breath Primary Care Provider: Radhames Millard PA-C 59-year-old male, with history of colon cancer with metastasis to liver and lung, hyponatremia, thrombocytopenia, protein calorie malnutrition who presents to emergency room because of shortness of breath. Patient was seen by his primary care provider, for shortness of breath, hyponatremia, JOLANTA and EKG changes. He was then sent to emergency room for further evaluation. Patient follows with nephrology, recently was evaluated by Dr. Prince, and he also follows with oncology, had a recent visit with Dr. Rendon, at that time they discussed that unfortunately patient's metastatic cancer is incurable and he has a poor prognosis. He was already complaining of shortness of breath at a time, but was satting 100% on room air. Patient is telling me that when he is at rest, he does not have any issues/he is not short of breath, shortness of breath is bothering him with any activity/exertion. EKG was obtained in ED, and showed normal sinus rhythm with nonspecific T wave changes in anterior and inferior leads. Troponin was negative. He received a liter of normal saline in ED. No other medications were given at that time. Patient reports recent history of sinusitis, and took amoxicillin for that. He is coughing during my examination, he says that he has some sputum production, which is fairly clear/white. He does not believe his cough has changed much. Denies any fevers or chills. On October 03, he underwent paracentesis, with 5 L of ascitic fluid removed. He has history of cirrhosis with ascites. Currently says that he does not believe that his ascites reaccumulated, and does not complain of any edema or abdominal distention. Today on evaluation, he is found hypotensive, 80s over 50s, as already mentioned above, he received 1 L of normal saline. Blood cultures were obtained and currently pending. Sodium was low at 124, creatinine elevated at 2.35, previously less than 1. Hospitalist team was consulted for admission. Allergies Allergy/AdvReac Type Severity Reaction Status Date / Time No Known Allergies Allergy Unverified 10/10/19 13:42 Home Medications Home Medications Medication Instructions Recorded Confirmed Type furosemide [Lasix] 20 mg PO QAM 03/29/19 10/10/19 History spironolactone 50 mg PO QAM 04/04/19 10/10/19 History nadolol 20 mg PO BID 10/04/19 10/10/19 History tramadol-acetaminophen 50 mg PO BID 10/04/19 10/10/19 History Past Med/Surg History Medical History Anemia (Chronic) Appendicitis (Resolved) Colon cancer (Chronic) Liver metastasis (Chronic) Perforation of colon (Resolved 04/12/14) Small bowel obstruction (Resolved) Surgical History History of partial colectomy (Chronic) Family History Other No significant family history Social History Preferred Language: Malagasy Communication Ability: Effective Advanced Practice Provider Required: No Beliefs That Will Affect Care: None Current Living Situation: Significant Other Feels Safe at Home: Yes Smoking Status: Never smoker Hx Alcohol Use: Yes Alcohol type: beer Hx Substance Use: No Review of Systems Review of Systems: All systems reviewed & are unremarkable except as noted in HPI & below Constitutional: no fever and no chills Eyes: no problem reported Ear, Nose, Mouth, Throat: no problem reported Respiratory: + cough and + dyspnea Cardiovascular: no chest pain and no palpitations Gastrointestinal: no abdominal pain, no nausea and no vomiting Genitourinary: no dysuria Musculoskeletal: no problem reported Integumentary: no problem reported Neurologic: no problem reported Psychiatric: no problem reported Endocrine: no problem reported Hematologic / Lymphatic: no problem reported Allergy / Immunological: no problem reported Physical Exam Physical Exam: thin male sitting up in the bed, in no acute distress, coughing Constitutional: + ill appearing and + thin; no acute distress Eyes: PERRL, conjunctivae normal, anicteric sclerae EOM intact bilaterally ENMT: external ear and nose normal, oropharynx normal Neck: normal visual inspection supple Respiratory: normal respiratory effort and + cough; no respiratory distress and no labored breathing Auscultation: + rhonchi (mild diffuse); no crackles and no wheezes Cardiovascular: RRR, no murmur, no edema Chest (Breasts): Chest: normal inspection of chest Gastrointestinal (Abdomen): Inspection/Auscultation: abdomen normal to inspection and normal bowel sounds; abdomen not distended Percussion /Palpation: abdomen soft; abdomen nontender, no guarding, abdomen not rigid and no ascites Musculoskeletal: Head/Neck/Chest: normocephalic, head atraumatic and neck supple Extremities: extremities normal to inspection Skin: no rashes, warm and dry Neurologic: PERRL, EOMI, accommodation nl, no face palsy, no dysarthria moves all extremities; no focal motor deficits Motor/Sensory: no tremor Psychiatric: A+Ox3, euthymic affect Genitourinary: no CVA tenderness Results & Data Results & Data ([facility]) Vital Signs (Past 12 Hours) Vital Signs Temp Pulse Resp BP Pulse Ox 10/10/19 17:30 60 15 96/65 L 100 10/10/19 17:20 60 14 10/10/19 17:10 54 L 14 100 10/10/19 17:00 54 L 18 105/69 100 10/10/19 16:50 54 L 19 100 10/10/19 16:40 54 L 14 100 10/10/19 16:30 54 L 18 109/69 100 10/10/19 16:20 54 L 15 100 10/10/19 16:10 53 L 17 100 10/10/19 16:00 57 L 17 101/67 100 10/10/19 15:50 55 L 18 100 10/10/19 15:40 53 L 15 100 10/10/19 15:32 55 L 19 97/49 L 100 10/10/19 15:30 54 L 17 10/10/19 15:20 52 L 20 100 10/10/19 15:10 54 L 16 100 10/10/19 15:00 53 L 17 98/71 L 100 10/10/19 14:50 54 L 15 98 10/10/19 14:40 53 L 14 10/10/19 14:31 53 L 14 107/66 100 10/10/19 14:30 53 L 18 100 10/10/19 14:20 56 L 19 10/10/19 14:17 99 10/10/19 14:00 54 L 13 127/71 99 10/10/19 13:50 53 L 16 100 10/10/19 13:40 53 L 14 100 10/10/19 13:31 53 L 14 99/67 L 100 10/10/19 13:30 54 L 12 100 10/10/19 13:20 53 L 12 10/10/19 13:10 51 L 18 10/10/19 13:08 54 L 22 90/64 L 10/10/19 13:00 52 L 12 10/10/19 12:50 54 L 17 10/10/19 12:40 55 L 13 10/10/19 12:30 54 L 14 10/10/19 12:23 66 18 79/48 L 10/10/19 12:22 59 L 18 102/63 10/10/19 12:20 56 L 17 10/10/19 12:17 96 10/10/19 12:10 58 L 15 10/10/19 12:06 58 L 14 10/10/19 12:04 96 10/10/19 11:38 36.4 C L 66 22 83/53 L 100 Laboratory Results 10/10/19 10/10/19 10/10/19 Range/Units 15:13 15:13 12:45 WBC (4.8-10.8) K/uL RBC (4.7-6.1) M/uL Hgb (14.0-18.0) g/dL Hct (42-52) % MCV (80-100) fL MCH (25-34) pg MCHC (32-36) g/dL RDW Std Deviation (36.4-46.3) fL RDW Coeff of Selam (11.5-14.5) % Plt Count (130-400) K/uL MPV (7.4-10.4) fL Immature Gran % (Auto) % Neut % (Auto) % Lymph % (Auto) % [place] % (Auto) % Eos % (Auto) % Baso % (Auto) % Immature Gran # (Auto) (0.00-0.02) K/uL Neut # (Auto) (1.4-6.5) K/uL Lymph # (Auto) (1.2-3.4) K/uL [place] # (Auto) (0.11-0.59) K/uL Eos # (Auto) (0-0.5) K/uL Baso # (Auto) (0-0.2) K/uL Sodium (136-145) mmol/L Potassium (3.5-5.1) mmol/L Chloride (98-107) mmol/L Carbon Dioxide (21-32) mmol/L Anion Gap (3-11) BUN (7-18) mg/dl Creatinine (0.6-1.4) mg/dl Est Cr Clr Drug Dosing Est GFR ( Amer) Est GFR (Non-Af Amer) BUN/Creatinine Ratio (10-20) Glucose (70-99) mg/dl Lactate 1.2 (0.4-2.0) mmol/L Calcium (8.5-10.1) mg/dl Magnesium (1.8-2.4) mg/dl Total Bilirubin (0.2-1) mg/dl AST (15-37) U/L ALT (12-78) U/L Alkaline Phosphatase (45-117) U/L Troponin I (0-0.045) ng/ml Total Protein (6.4-8.2) gm/dl Albumin (3.4-5.0) gm/dl Globulin (2.5-4.0) gm/dl Albumin/Globulin Ratio (0.9-2) TSH (0.300-4.500) uIu/ml COVID-19 PCR NEGATIVE (Negative) SARS-CoV-2 RNA (RT-PCR) Cancelled 10/10/19 10/10/19 Range/Units 03:43 03:43 WBC 9.90 (4.8-10.8) K/uL RBC 3.13 L (4.7-6.1) M/uL Hgb 10.3 L (14.0-18.0) g/dL Hct 27.9 L (42-52) % MCV 89.1 (80-100) fL MCH 32.9 (25-34) pg MCHC 36.9 H (32-36) g/dL RDW Std Deviation 45.5 (36.4-46.3) fL RDW Coeff of Selam 14.0 (11.5-14.5) % Plt Count 227 (130-400) K/uL MPV 9.6 (7.4-10.4) fL Immature Gran % (Auto) 0.2 % Neut % (Auto) 81.7 % Lymph % (Auto) 4.8 % [place] % (Auto) 11.3 % Eos % (Auto) 1.8 % Baso % (Auto) 0.2 % Immature Gran # (Auto) 0.02 (0.00-0.02) K/uL Neut # (Auto) 8.08 H (1.4-6.5) K/uL Lymph # (Auto) 0.48 L (1.2-3.4) K/uL [place] # (Auto) 1.12 H (0.11-0.59) K/uL Eos # (Auto) 0.18 (0-0.5) K/uL Baso # (Auto) 0.02 (0-0.2) K/uL Sodium 124 L (136-145) mmol/L Potassium 3.9 (3.5-5.1) mmol/L Chloride 88 L (98-107) mmol/L Carbon Dioxide 26 (21-32) mmol/L Anion Gap 10.0 (3-11) BUN 51 H (7-18) mg/dl Creatinine 2.35 H (0.6-1.4) mg/dl Est Cr Clr Drug Dosing Not Reportable Est GFR ( Amer) 34.3 Est GFR (Non-Af Amer) 29.6 BUN/Creatinine Ratio 21.5 H (10-20) Glucose 117 H (70-99) mg/dl Lactate (0.4-2.0) mmol/L Calcium 8.4 L (8.5-10.1) mg/dl Magnesium 2.0 (1.8-2.4) mg/dl Total Bilirubin 3.6 H (0.2-1) mg/dl AST 34 (15-37) U/L ALT 12 (12-78) U/L Alkaline Phosphatase 261 H (45-117) U/L Troponin I < 0.015 (0-0.045) ng/ml Total Protein 7.0 (6.4-8.2) gm/dl Albumin 2.5 L (3.4-5.0) gm/dl Globulin 4.5 H (2.5-4.0) gm/dl Albumin/Globulin Ratio 0.6 L (0.9-2) TSH 3.910 (0.300-4.500) uIu/ml COVID-19 PCR (Negative) SARS-CoV-2 RNA (RT-PCR) Diagnostic Findings CT chest IMPRESSION: 1. Progressively worsened bibasilar predominant solid pulmonary nodules are compatible with pulmonary metastasis.. 2. Progressive hepatic metastatic disease with abdominal ascites and upper abdominal omental nodularity, possibly reflective of omental carcinomatosis. 3. Multisegmental bilateral scattered tree-in-bud nodules with intermixed groundglass densities, most pronounced within the basal left lower lobe may represent endobronchial spread of neoplasm versus superimposed infectious or inflammatory bronchiolitis/pneumonitis. 4. Mildly prominent mediastinal lymph nodes CXR IMPRESSION: Bibasilar reticular nodular opacities, right greater than left have progressively worsened from comparison. Additionally, there are scattered pulmonary nodules of the upper lung zones. These findings could be correlated with a follow-up CT of the chest. (1) Colon cancer Colon location: unspecified part of colon Qualified Code(s): C18.9 - Malignant neoplasm of colon, unspecified (2) Ascites Ascites type: other type Qualified Code(s): R18.8 - Other ascites
[2019-10-10] MEDS ORDERED: POLYETHYLENE (MIRALAX) 17 GM PACK PO PRN (20:20)
[2019-10-10] MEDS ORDERED: ACETAMINOPHEN 325 MG TAB PO PRN (20:20)
[2019-10-10] MEDS ORDERED: TRAMADOL HCL 50 MG TABLET PO PRN (20:25)
[2019-10-10] MEDS ORDERED: FUROSEMIDE 40 MG/4 ML VIAL IV SCH (21:00)
[2019-10-10] MEDS: nadoloL 40 MG TAB PO SCH (21:38)
[2019-10-10] MEDS: FUROSEMIDE 40 MG in SYRINGE 0 ML IV SCH (21:39)
[2019-10-10] MEDS: metroNIDAZOLE 500 MG TAB PO SCH (21:39)
[2019-10-10] MEDS: HEPARIN 100 UNIT/ML 5ML FLUSH FLUSH PRN (21:41)
[2019-10-10] MEDS: HEPARIN SOD 5,000 UNIT/0.5 ML VIAL SQ SCH (22:01)
[2019-10-10 23:40] LABS: BUN Creatinine Ratio 24.2 (10-20); Calcium 8.3 mg/dl (8.5-10.1); Creatinine Clr Calc Pharmacy 38.7 ml/min; Est GFR (African American) 42.2; Est GFR (Non-African American) 36.4; Potassium 4.1 mmol/L (3.5-5.1)
--- NOTE | 2019-10-10 23:40 | Electrocardiogram Report ---
Test Reason : Blood Pressure : / mmHG Vent. Rate : 060 BPM Atrial Rate : 060 BPM P-R Int : 186 ms QRS Dur : 086 ms QT Int : 280 ms P-R-T Axes : 079 078 182 degrees QTc Int : 280 ms Normal sinus rhythm T wave abnormality, consider anterolateral ischemia Abnormal ECG When compared with ECG of 01-APR-2019 17:04, Vent. rate has decreased BY 29 BPM Nonspecific T wave abnormality now evident in Inferior leads T wave inversion now evident in Anterolateral leads Confirmed by Oneal Carrero ([id number]) on 10/10/2019 11:40:40 PM Referred By: REFERRED SELF Confirmed By:Oneal Carrero
[2019-10-11] MEDS: ALBUMIN 25% 50 ML IV SCH ×4 (00:04→17:11)
[2019-10-11] MEDS: HEPARIN 100 UNIT/ML 5ML FLUSH FLUSH PRN ×4 (00:51→21:23)
[2019-10-11] MEDS ORDERED: CEFEPIME 2,000 MG in SYRINGE 7.5 ML IV SCH (07:00)
[2019-10-11 07:24] LABS: Hematocrit (blood only) 25.3 % (42-52); Hemoglobin 9.2 g/dL (14.0-18.0); Mean Corpuscular Hemoglobin 32.7 pg (25-34); Mean Corpuscular Hgb Conc 36.4 g/dL (32-36); Mean Platelet Volume 8.9 fL (7.4-10.4); Platelet Count 190 K/uL (130-400); RDW Coefficient of Variation 14.1 % (11.5-14.5); RDW Standard Deviation 46.6 fL (36.4-46.3); Red Blood Count 2.81 M/uL (4.7-6.1); White Blood Count 7.46 K/uL (4.8-10.8)
[2019-10-11 07:41] LABS: Calcium 8.2 mg/dl (8.5-10.1); Creatinine Clr Calc Pharmacy 41.6 ml/min; Est GFR (African American) 46.1; Est GFR (Non-African American) 39.8; Magnesium 1.9 mg/dl (1.8-2.4); Phosphorus 3.9 mg/dl (2.5-4.9); Potassium 4.2 mmol/L (3.5-5.1)
[2019-10-11] MEDS: HEPARIN SOD 5,000 UNIT/0.5 ML VIAL SQ SCH ×2 (09:32→20:43)
[2019-10-11] MEDS: metroNIDAZOLE 500 MG TAB PO SCH ×3 (09:32→20:37)
[2019-10-11] MEDS: nadoloL 40 MG TAB PO SCH ×2 (09:33→20:41)
--- NOTE | 2019-10-11 10:00 | Nephrology Consultation ---
Date of Consultation October 11, 2019 Assessment & Plan (1) JOLANTA (acute kidney injury): Patient with acute kidney injury likely due to prerenal azotemia in setting of large volume paracentesis and diuresis. Continue albumin infusions at 25 g every 6 hourly. Monitor renal function with daily BMP and avoid nephrotoxins such as contrast and NSAIDs. (2) Hyponatremia: Due to SIADH. Continue Lasix 40 mg IV twice daily. Continue holding Aldactone. Patient should be on fluid restriction of 40 ounces daily. Sodium is better this morning at 127. (3) Anemia: Likely due to chronic inflammation and cancer. Monitor and transfuse as needed. No role for Epogen in setting of active cancer. (4) Hypotension: BP is better this morning. If systolic drops to 90 or less, recommend resuming midodrine (5) SOB (shortness of breath): Likely due to lung metastasis. Patient does not appear volume overloaded or have pulmonary edema. History of Present Illness Reason for Consultation: Hyponatremia, acute kidney injury Requesting Physician: Consuelo López MD Attending Physician: Dedrick Ozuna MD History of Present Illness This is 59-year-old male with history of metastatic colon cancer to the liver and lung who has failed chemotherapy, liver cirrhosis complicated by ascites, thrombocytopenia, anemia who was admitted on 10/10/2019 with shortness of breath. He was found to have a sodium of 124. His creatinine was also up to 2.3 from her normal baseline of 0.9 on 10/04/2019. Patient had large-volume paracentesis on 10/04/2019 for 5 L. He got albumin with the paracentesis. He has been progressively short of breath with exertion unable to walk long distances without taking a break. Patient also follows with me in the outpatient. I had placed him on a fluid restricted diet and was down titrating his Aldactone. In the emergency room his blood pressure was low with systolic between 80 and 90. He got 1 L of normal saline. He also got albumin. He is now getting Lasix 40 mg IV twice daily. Sodium is better at 127 this morning. He feels better this morning but still has exertional dyspnea. Creatinine is downtrending at 1.8. Allergies Allergy/AdvReac Type Severity Reaction Status Date / Time No Known Allergies Allergy Unverified 10/10/19 13:42 Home Medications Home Medications Medication Instructions Recorded Confirmed Type furosemide [Lasix] 20 mg PO QAM 03/29/19 10/10/19 History spironolactone 50 mg PO QAM 04/04/19 10/10/19 History nadolol 20 mg PO BID 10/04/19 10/10/19 History tramadol-acetaminophen 50 mg PO BID 10/04/19 10/10/19 History Patient History Medical History Anemia (Chronic) Appendicitis (Resolved) Colon cancer (Chronic) Liver metastasis (Chronic) Perforation of colon (Resolved 04/12/14) Small bowel obstruction (Resolved) Surgical History History of partial colectomy (Chronic) Family History Other No significant family history Social History Preferred Language: Romansh Communication Ability: Effective Ict Teacher Required: No Beliefs That Will Affect Care: None Current Living Situation: Significant Other Other Information That Helps Us Care for You: No Feels Safe at Home: Yes Safety Concerns: Feels Safe At This Time Smoking Status: Never smoker Hx Alcohol Use: Yes Alcohol type: beer Hx Substance Use: No Review of Systems Review of Systems: All systems reviewed & are unremarkable except as noted in HPI & below Physical Exam Physical Exam: General exam: Appears comfortable, no acute distress HEENT: Pupils are equal and reactive to light Neck: No JVD, neck is supple trachea is midline Respiratory system: Clear breath sounds bilaterally. Gastrointestinal: Abdomen is soft, distended with ascites, non tender, bowel sounds are present CVS: Regular rate and rhythm. No murmurs, rubs or gallops Musculoskeletal: No joint or muscle tenderness Extremities: Non tender, no edema, peripheral pulses are present Neuro: Oriented, no tremors, no focal neurological deficits Skin: No rashes Results & Data Vital Signs (Past 12 Hours) Vital Signs Temp Pulse Pulse Resp BP Pulse Ox 10/11/19 07:10 37 C 70 16 101/56 L 97 10/11/19 05:48 36.9 C 65 18 137/79 96 10/11/19 03:52 36.8 C 59 L 18 90/59 L 98 10/11/19 00:04 36.8 C 59 L 18 111/63 98 10/10/19 23:40 36.7 C 61 20 106/71 98 10/10/19 22:20 59 L Laboratory Results 10/11/19 07:17 10/10/19 10/10/19 10/11/19 03:43 03:43 07:17 WBC 9.90 7.46 RBC 3.13 L 2.81 L MCV 89.1 90.0 MCH 32.9 32.7 MCHC 36.9 H 36.4 H RDW Std Deviation 45.5 46.6 H RDW Coeff of Selam 14.0 14.1 Plt Count 227 190 MPV 9.6 8.9 Phosphorus Albumin 2.5 L 10/11/19 07:17 WBC RBC MCV MCH MCHC RDW Std Deviation RDW Coeff of Selam Plt Count MPV Phosphorus 3.9 Albumin (1) Anemia Anemia type: unspecified type Qualified Code(s): D64.9 - Anemia, unspecified (2) Hypotension Hypotension type: unspecified hypotension type Qualified Code(s): I95.9 - H ypotension, unspecified
[2019-10-11] MEDS: FUROSEMIDE 40 MG in SYRINGE 0 ML IV SCH ×2 (10:13→17:05)
[2019-10-11 13:34] LABS: Appearance Urine Clear (Clear); Blood Urine Negative (Negative); Color Urine Dark Yellow; Glucose Urine UA Negative (Negative); Ketones Urine Negative (Negative); Leukocyte Esterase Urine Negative (Negative); Nitrite Urine Negative (Negative); Protein Urine Negative (Negative); Specific Gravity Urine 1.013 (1.000-1.030); Urobilinogen Urine Negative (Negative)
[2019-10-11 13:39] LABS: Bilirubin Urine Negative (Negative); Ictotest Urine Negative (Negative)
--- NOTE | 2019-10-11 14:29 | Palliative Care Consultation ---
Date of Consultation October 11, 2019 Assessment & Plan (1) Goals of care, counseling/discussion: -59 year old male patient with PMH colon cancer with metastasis to liver and lung, hyponatremia, thrombocytopenia, protein calorie malnutrition, and cirrhosis with ascites presented to the ED last evening with shortness of breath. Patient recently saw his PCP for SOB, hyponatremia, JOLANTA and EKG changes-- he was sent to the ED for further evaluation. Patient follows with heme/onc for his colon cancer. Recently had a visit with Dr. Rendon in which his incurable disease and poor prognosis was discussed. In ED, EKG showed some nonspecific changes, but troponin was negative. Na 124, creatinine 2.36 (previously <1), hypotensive 80s/50s, received 1L IVF. Blood cultures obtained and pending. Patient had a paracentesis on 10/03 for 5L ascitic fluid removal. Nephrology consulted-0 JOLANTA likely 2/2 pre-renal/azotemia from diuresis and large volume paracentesis. Creatinine is down to 1.8 today. Patient's decline seems to correlate with the paracentesis. He was started on IV abx, albumin and electrolyte replacement. Patient states he does not want heroic measures such as CPR or intubation, is okay with other medical management while in hospital. Palliative care is consulted to discuss goals of care. -Patient seen by palliative MD this afternoon. He has no pain or complaints. Still gets a little short of breath with activity, but no distress. He is on room air. -Patient stated to MD that he lives at home with his girlfriend. He has no children. -He is aware that his prognosis isn't great, but he is states he is not focusing on that. 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 -When hospice was mentioned, patient stated he isn't ready to "just lay down and ." He plans to return home with his girlfriend and take things one day at a time. -No pain or symptom management needs. -Palliative care will sign off at this time. Please contact us with any change in condition. (2) SOB (shortness of breath): (3) JOLANTA (acute kidney injury): (4) Colon cancer: Colon location: unspecified part of colon Qualified Code(s): C18.9 - Malignant neoplasm of colon, unspecified Supervising Physician Co-Signing Physician Notes Chart reviewed, patient seen and examined, collaborated with QUENTIN Garcia as well as attending physician Dr. Ozuna Patient thin and cachectic with distended abdomen, skin is jaundiced-bili 3.6 on admission, creatinine 2.35 on admission, today now 1.84. Prior baseline was 0.5. PE: Patient thin and cachectic with obvious muscle wasting HEENT: EOMI, hearing within normal limits Respirations: Unlabored at rest CV: Regular rate Abdomen: Soft, nontender, distended. Extremities: Generalized weakness Neuro: Alert and oriented x4 Patient did not want to discuss advanced directives or possible help at home with home health versus hospice. Patient's goal is return to work-patient states he was through 10/05. Patient reports his symptoms were acute onset 2 days after large volume paracentesis. Patient appears to be improving with hydration. Would recommend patient discharged home with home health, perhaps an agency that also does hospice would be of value. Agree with above note, assessment and plan as per QUENTIN Garcia. History of Present Illness Attending Physician: Dedrick Ozuna MD History of Present Illness This 59 year old male patient with PMH colon cancer with metastasis to liver and lung, hyponatremia, thrombocytopenia, protein calorie malnutrition, and cirrhosis with ascites presented to the ED last evening with shortness of breath. Patient recently saw his PCP for SOB, hyponatremia, JOLANTA and EKG changes-- he was sent to the ED for further evaluation. Patient follows with heme/onc for his colon cancer. Recently had a visit with Dr. Rendon in which his incurable disease and poor prognosis was discussed. In ED, EKG showed some nonspecific changes, but troponin was negative. Na 124, creatinine 2.36 (previously <1), hypotensive 80s/50s, received 1L IVF. Blood cultures obtained and pending. Patient had a paracentesis on 10/03 for 5L ascitic fluid removal. Nephrology consulted-0 JOLANTA likely 2/2 pre-renal/azotemia from diuresis and large volume paracentesis. Creatinine is down to 1.8 today. Patient's decline seems to correlate with the paracentesis. He was started on IV abx, albumin and electrol yte replacement. Patient states he does not want heroic measures such as CPR or intubation, is okay with other medical management while in hospital. Palliative care is consulted to discuss goals of care. Thank you kindly for this consult. Palliative care team will follow as needed. Allergies Allergy/AdvReac Type Severity Reaction Status Date / Time No Known Allergies Allergy Unverified 10/10/19 13:42 Home Medications Home Medications Medication Instructions Recorded Confirmed Type furosemide [Lasix] 20 mg PO QAM 03/29/19 10/10/19 History spironolactone 50 mg PO QAM 04/04/19 10/10/19 History nadolol 20 mg PO BID 10/04/19 10/10/19 History tramadol-acetaminophen 50 mg PO BID 10/04/19 10/10/19 History Patient History Medical History Anemia (Chronic) Appendicitis (Resolved) Colon cancer (Chronic) Liver metastasis (Chronic) Perforation of colon (Resolved 04/12/14) Small bowel obstruction (Resolved) Surgical History History of partial colectomy (Chronic) Family History Other No significant family history Social History Preferred Language: Belgian Communication Ability: 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 Beliefs That Will Affect Care: None marital status: Single Current Living Situation: Significant Other Other Information That Helps Us Care for You: No Feels Safe at Home: Yes Safety Concerns: Feels Safe At This Time Smoking Status: Never smoker Hx Alcohol Use: Yes Alcohol type: beer Hx Substance Use: No Results & Data Vital Signs (Past 12 Hours) Vital Signs Temp Pulse Pulse Resp BP Pulse Ox 10/11/19 13:04 37.0 C 71 20 111/65 98 10/11/19 11:30 37.1 C 66 16 102/71 94 10/11/19 08:00 68 10/11/19 07:10 37 C 70 16 101/56 L 97 10/11/19 05:48 36.9 C 65 18 137/79 96 10/11/19 03:52 36.8 C 59 L 18 90/59 L 98 Coding Level of Care Code 91832 Inpt Consult Level 3 Diagnoses Goals of care, counseling/discussion Z71.89 SOB (shortness of breath) R06.02 JOLANTA (acute kidney injury) N17.9 Colon cancer C18.9 Colon location: unspecified part of colon Time Spent (min) 80 Time Spent Midlevel A total of 50 minutes spent in reviewing chart, speaking with physicians and IDT regarding patient condition, goals, and plan of care. Attending Spent 30 minutes at bedside in addition to the 50 minutes spent by QUENTIN Hyatt for total of 80 minutes assessing patient's current symptoms, and addressing goals of care.
--- NOTE | 2019-10-11 16:33 | Hospitalist Progress Note ---
Date of Service October 11, 2019 Assessment & Plan (1) JOLANTA (acute kidney injury): Likely due to prerenal azotemia In setting of recent large-volume paracentesis Cr: Cr: 2.35>>1.98>>1.84 Continue IV albumin, IV Lasix as per nephrology Appreciate nephrology input We will monitor volume status, renal function Avoid nephrotoxic agents as able Hold Aldactone for now. 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 Progressive hepatic metastatic disease with abdominal ascites and upper abdominal omental nodularity, possibly reflective of omental carcinomatosis. Multisegmental bilateral scattered tr ee-in-bud nodules with intermixed groundglass densities, most pronounced within the basal left lower lobe may represent endobronchial spread of neoplasm versus superimposed infectious or inflammatory bronchiolitis/pneumonitis. Mildly prominent mediastinal lymph nodes -Deconditioning due to comorbidities could be contributing as well -COVID screen negative -Continue empiric antibiotics -Blood/Sputum cultures:pending -Supplemental oxygen as needed -Currently saturating well on room air. -Consider ECHO if no improvement (5) Colon cancer: Metastatic Colon Cancer Diagnosed in 2013 Metastases to lung and liver Follows with Dr. Rendon, last seen on October 07, 2019 No further treatment planned as has very poor prognosis Appreciate Palliative Care Input (6) Liver metastasis: (7) Ascites: S/P large-volume paracentesis on October 03. Continue diuretics/albumin as above DVT Px: Heparin SQ CODE STATUS: DNR/DNI Admission and Anticipated Discharge Date Admission Date: October 10, 2019 Subjective Patient is seen and examined at bedside Reports dyspnea on exertion Denies any chest pain, dizziness, nausea, abdominal pain Discussed with nephrology today Renal function slowly improving Offers no other complaints Review of Systems Review of Systems: All systems reviewed & are unremarkable except as noted in HPI & below Physical Exam Physical Exam: Physical Exam: Vitals signs as noted above General Appearance:Thin, Frail, Chronic ill appearing, no apparent distress Head: normocephalic, Atraumatic Eyes: normal inspection, EOMI Neck: supple, Trachea midline Respiratory/Chest: Normal breath sounds, CTA, Chemo port on Right side Cardiovascular: S1, S2, No murmur Abdomen/GI:Soft, distended, Non tender, Bowel sounds present Extremities/Musculoskelatal:normal inspection, no edema Neurologic/Psych:AAOX3, grossly no focal neurological deficits Skin: normal color, warm Results & Data Results & Data ([facility]) Vital Signs (Past 12 Hours) Vital Signs Temp Pulse Pulse Resp BP Pulse Ox 10/11/19 15:42 37.0 C 65 18 103/60 100 10/11/19 15:07 69 10/11/19 13:04 37.0 C 71 20 111/65 98 10/11/19 11:30 37.1 C 66 16 102/71 94 10/11/19 08:00 68 10/11/19 07:10 37 C 70 16 101/56 L 97 10/11/19 05:48 36.9 C 65 18 137/79 96 Laboratory Results Short CBC 10/11/19 Range/Units 07:17 WBC 7.46 (4.8-10.8) K/uL Hgb 9.2 L (14.0-18.0) g/dL Hct 25.3 L (42-52) % Plt Count 190 (130-400) K/uL BMP 10/10/19 10/11/19 23:07 07:17 Sodium 127 L 127 L Potassium 4.1 4.2 Chloride 92 L 92 L Carbon Dioxide 25 23 BUN 48 H 50 H Creatinine 1.98 H D 1.84 H Glucose 97 98 Calcium 8.3 L 8.2 L Cardiac Enzymes 10/10/19 Range/Units 17:52 Troponin I < 0.015 (0-0.045) ng/ml Urine 10/11/19 Range/Units 13:10 Urine Color Dark Yellow Urine Appearance Clear (Clear) Urine pH 5.0 (4.5-7.5) Ur Specific Winifred 1.013 (1.000-1.030) Urine Protein Negative (Negative) Urine Glucose (UA) Negative (Negative) (1) Colon cancer Colon location: unspecified part of colon Qualified Code(s): C18.9 - Malignant neoplasm of colon, unspecified (2) Ascites Ascites type: other type Qualified Code(s): R18.8 - Other ascites
[2019-10-11] MEDS ORDERED: NON-FORMULARY PATIENT'S OWN MED TOP PRN (19:54)
[2019-10-11] MEDS: cefTRIAXone SODIUM 2,000 MG in DEXTROSE 5% 50 ML IV SCH (20:37)
[2019-10-11] MEDS ORDERED: HYDROmorphone INJ 0.5 MG/0.5 ML SYR IV PRN (23:58)
[2019-10-12] MEDS: ALBUMIN 25% 50 ML IV SCH ×2 (00:25→06:22)
[2019-10-12] MEDS: HEPARIN 100 UNIT/ML 5ML FLUSH FLUSH PRN ×3 (01:08→22:37)
[2019-10-12] MEDS: OXYCODONE HCL IR 5 MG TAB (IMMEDIATE RELEASE) PO PRN ×6 (01:11→22:03)
[2019-10-12 05:25] LABS: Hematocrit (blood only) 25.3 % (42-52); Mean Corpuscular Hemoglobin 32.4 pg (25-34); Mean Corpuscular Hgb Conc 35.6 g/dL (32-36); Mean Platelet Volume 9.4 fL (7.4-10.4); Platelet Count 199 K/uL (130-400); Red Blood Count 2.78 M/uL (4.7-6.1); White Blood Count 8.82 K/uL (4.8-10.8)
[2019-10-12 06:00] LABS: BUN Creatinine Ratio 27.4 (10-20); Calcium 8.7 mg/dl (8.5-10.1); Creatinine Clr Calc Pharmacy 44.5 ml/min; Est GFR (Non-African American) 43.2
--- NOTE | 2019-10-12 08:14 | Nephrology Progress Note ---
Date of Service October 12, 2019 Assessment & Plan (1) JOLANTA (acute kidney injury): Patient with acute kidney injury likely due to prerenal azotemia in setting of large volume paracentesis and diuresis. Stop albumin. Monitor renal function with daily BMP while in-house and avoid nephrotoxins such as contrast and NSAIDs. From renal standpoint patient can be discharged on torsemide 60 mg daily. He will need a repeat BMP mid next week and follow-up with me via telemedicine in 2 weeks (2) Hyponatremia: Due to SIADH. Stop Lasix. Start torsemide 60 mg daily. Patient can be discharged on the same. Continue holding Aldactone given on discharge. Patient should be on fluid restriction of 40 ounces daily. Sodium is better this morning at 128. (3) Anemia: Likely due to chronic inflammation and cancer. Monitor and transfuse as needed. No role for Epogen in setting of active cancer. (4) Hypotension: BP is better this morning. If systolic drops to 90 or less, recommend resuming midodrine (5) SOB (shortness of breath): Likely due to lung metastasis. Patient does not appear volume overloaded or have pulmonary edema. Admission and Anticipated Discharge Date Admission Date: October 10, 2019 Subjective Patient feels better. He still has exertional dyspnea. Appetite is good. Has moderate abdominal distention. He would like to go home. Review of Systems Review of Systems: All systems reviewed & are unremarkable except as noted in HPI & below Physical Exam Physical Exam: General exam: Appears comfortable, no acute distress HEENT: Pupils are equal and reactive to light Neck: No JVD, neck is supple trachea is midline Respiratory system: Clear breath sounds bilaterally. Gastrointestinal: Abdomen is soft, distended, non tender, bowel sounds are pr esent CVS: Regular rate and rhythm. No murmurs, rubs or gallops Musculoskeletal: No joint or muscle tenderness Extremities: Non tender, no edema, peripheral pulses are present Neuro: Oriented, no tremors, no focal neurological deficits Skin: No rashes Results & Data ([facility]) Vital Signs (Past 12 Hours) Vital Signs Temp Pulse Pulse Resp BP Pulse Ox 10/12/19 07:23 36.5 C 61 18 110/70 98 10/12/19 02:52 36.8 C 61 20 106/67 96 10/12/19 00:25 36.9 C 60 18 126/79 98 10/11/19 23:28 37 C 66 18 106/72 99 10/11/19 22:20 68 Laboratory Results 10/12/19 05:06 10/12/19 05:06 WBC 8.82 RBC 2.78 L MCV 91.0 MCH 32.4 MCHC 35.6 RDW Std Deviation 47.0 H RDW Coeff of Selam 14.0 Plt Count 199 MPV 9.4 (1) Anemia Anemia type: unspecified type Qualified Code(s): D64.9 - Anemia, unspecified (2) Hypotension Hypotension type: unspecified hypotension type Qualified Code(s): I95.9 - Hypotension, unspecified
--- NOTE | 2019-10-12 09:21 | Hospitalist Progress Note ---
Date of Service October 12, 2019 Assessment & Plan (1) JOLANTA (acute kidney injury): Likely due to prerenal azotemia In setting of recent large-volume paracentesis Cr: Cr: 2.35>>1.98>>1.84 >>1.72 Continue IV albumin, IV Lasix as per nephrology Clothes Shaker recommendations noted Will monitor volume status, renal function Avoid nephrotoxic agents as able Hold Aldactone for now. (2) Hyponatremia: Na was 124 on admission, 128 today Likely due to SIADH Continue fluid restriction Monitor sodium levels Appreciate nephrology input (3) Hypotension: In the setting of cirrhosis/liver disease continue with IV albumin Hold Aldactone Diuretic changed to torsemide today Clothes Shaker recommendations noted (4) Shortness of breath: Pneumonitis/Bronchiolitis CT Chest:Progressively worsened bibasilar predominant solid pulmonary nodules are compatible with pulmonary metastasis. Progressive hepatic metastatic disease with abdominal ascites and upper abdominal omental nodularity, possibly reflective of omental carcinomatosis. Multisegmental bilateral scattered tree-in-bud nodules with intermixed groundglass densities, most pronounced within the basal left lower lobe may represent endobronchial spread of neoplasm versus superimposed infectious or inflammatory bronchiolitis/pneumonitis. Mildly prominent mediastinal lymph nodes Deconditioning due to comorbidities could be contributing as well COVID screen negative Continue empiric antibiotics Sputum culture - staph (preliminary). Follow up final report Blood cultures -negative to date Currently saturating well on room air. (5) Colon cancer: Metastatic Colon Cancer Diagnosed in 2013 Metastases to lung and liver Follows with Dr. Rendon, last seen on October 07, 2019 No further treatment planned as has very poor prognosis Palliative recommendations noted (6) Liver metastasis: (7) Ascites: S/P large-volume paracentesis on October 03. Continue diuretics/albumin as above Will give lactulose today to aid with bowel movment DVT Px: Heparin SQ CODE STATUS: DNR/DNI Admission and Anticipated Discharge Date Admission Date: October 10, 2019 Subjective Patient seen and examined. Denied any fevers, chills, nausea, vomiting Reports abdominal distention unchanged. Last bowel movement was 2 days ago. Denied any abdominal pain. Reported some back pain overnight, resolved now. Denied any cough, chest pain Reports shortness of breath has significantly improved Physical Exam Constitutional: + ill appearing (Chronically ill appearing) and + cachectic; no acute distress Eyes: PERRL, conjunctivae normal, anicteric sclerae ENMT: external ear and nose normal, oropharynx normal Respiratory: normal respiratory effort, lungs clear to auscultation Cardiovascular: RRR, S1 S2 Gastrointestinal (Abdomen): Distended abdomen, soft, nontenderness, bowel sounds normoactive Neurologic: PERRL, EOMI, accommodation nl, no face palsy, no dysarthria no focal motor deficits Psychiatric: A+Ox3, euthymic affect Results & Data Results & Data ([facility]) Vital Signs (Past 12 Hours) Vital Signs Temp Pulse Pulse Resp BP Pulse Ox 10/12/19 07:23 36.5 C 61 18 110/70 98 10/12/19 02:52 36.8 C 61 20 106/67 96 10/12/19 00:25 36.9 C 60 18 126/79 98 10/11/19 23:28 37 C 66 18 106/72 99 10/11/19 22:20 68 Laboratory Results Abnormal lab results 10/11/19 10/12/19 10/12/19 Range/Units 13:10 05:06 05:06 RBC 2.78 L (4.7-6.1) M/uL Hgb 9.0 L (14.0-18.0) g/dL Hct 25.3 L (42-52) % RDW Std Deviation 47.0 H (36.4-46.3) fL Sodium 128 L (136-145) mmol/L Chloride 92 L (98-107) mmol/L BUN 47 H (7-18) mg/dl Creatinine 1.72 H (0.6-1.4) mg/dl BUN/Creatinine Ratio 27.4 H (10-20) Glucose 123 H (70-99) mg/dl Urine Osmolality 334 L (500-800) mOsm/kg (1) Colon cancer Colon location: unspecified part of colon Qualified Code(s): C18.9 - Malignant neoplasm of colon, unspecified (2) Ascites Ascites type: other type Qualified Code(s): R18.8 - Other ascites
[2019-10-12] MEDS: nadoloL 40 MG TAB PO SCH ×2 (09:50→21:53)
[2019-10-12] MEDS: TORSEMIDE 20 MG TAB PO SCH (09:50)
[2019-10-12] MEDS: metroNIDAZOLE 500 MG TAB PO SCH ×3 (09:50→21:53)
[2019-10-12] MEDS: HEPARIN SOD 5,000 UNIT/0.5 ML VIAL SQ SCH ×2 (09:51→21:54)
[2019-10-12] MEDS: LACTULOSE SYRUP 20 GM/30 ML UDC PO SCH ×2 (09:55→21:53)
[2019-10-12] MEDS: cefTRIAXone SODIUM 2,000 MG in DEXTROSE 5% 50 ML IV SCH (21:54)
[2019-10-13 05:57] LABS: Hematocrit (blood only) 27.5 % (42-52); Hemoglobin 9.7 g/dL (14.0-18.0); Mean Corpuscular Hemoglobin 32.4 pg (25-34); Mean Corpuscular Hgb Conc 35.3 g/dL (32-36); Mean Platelet Volume 9.5 fL (7.4-10.4); Platelet Count 238 K/uL (130-400); RDW Coefficient of Variation 14.2 % (11.5-14.5); RDW Standard Deviation 47.3 fL (36.4-46.3); Red Blood Count 2.99 M/uL (4.7-6.1); White Blood Count 15.34 K/uL (4.8-10.8)
--- NOTE | 2019-10-13 06:00 | Electrocardiogram Report ---
Test Reason : Blood Pressure : / mmHG Vent. Rate : 060 BPM Atrial Rate : 060 BPM P-R Int : 176 ms QRS Dur : 092 ms QT Int : 456 ms P-R-T Axes : 072 067 -27 degrees QTc Int : 456 ms Normal sinus rhythm Abnormal ECG When compared with ECG of 10-OCT-2019 12:01, No significant change Confirmed by Oneal Carrero ([id number]) on 10/13/2019 6:00:01 AM Referred By: REFERRED SELF Confirmed By:Oneal Carrero
[2019-10-13 06:21] LABS: BUN Creatinine Ratio 20.8 (10-20); Calcium 8.5 mg/dl (8.5-10.1); Creatinine Clr Calc Pharmacy 30.4 ml/min; Est GFR (African American) 32.3; Est GFR (Non-African American) 27.9; Potassium 4.1 mmol/L (3.5-5.1)
[2019-10-13] MEDS: HEPARIN SOD 5,000 UNIT/0.5 ML VIAL SQ SCH (08:27)
[2019-10-13] MEDS: LACTULOSE SYRUP 20 GM/30 ML UDC PO SCH (08:50)
[2019-10-13] MEDS: TORSEMIDE 20 MG TAB PO SCH (08:50)
[2019-10-13] MEDS: metroNIDAZOLE 500 MG TAB PO SCH (08:50)
[2019-10-13] MEDS: nadoloL 40 MG TAB PO SCH (08:50)
[2019-10-13] MEDS: OXYCODONE HCL IR 5 MG TAB (IMMEDIATE RELEASE) PO PRN (08:53)
--- NOTE | 2019-10-13 11:02 | Nephrology Progress Note ---
Date of Service October 13, 2019 Assessment & Plan (1) JOLANTA (acute kidney injury): Patient with acute kidney injury likely due to ATN from hypotension in setting of advanced cancer. Given metastatic cancer, prognosis is poor. Patient would like to go home and spend whatever time he has with his girlfriend. I suggested hospice at home to help with pain control which patient is agreeable to. Given worsening renal function, suggest reducing torsemide 40 mg daily. He will need a repeat BMP mid next week and follow-up with me via telemedicine in 2 weeks (2) Hyponatremia: Due to SIADH. Reduce torsemide to 40 mg daily. Patient can be discharged on the same. Continue holding Aldactone given on discharge. Patient should be on fluid restriction of 40 ounces daily. Sodium is low at 124 today but this is going to be an ongoing issue in setting of advanced cancer (3) Anemia: Likely due to chronic inflammation and cancer. Monitor and transfuse as needed. No role for Epogen in setting of active cancer. (4) Hypotension: BP is low this morning. If systolic drops to 90 or less, recommend resuming midodrine (5) SOB (shortness of breath): Likely due to lung metastasis. Patient does not appear volume overloaded or have pulmonary edema. Admission and Anticipated Discharge Date Admission Date: October 10, 2019 Subjective Patient feels about the same. He still has exertional dyspnea. He has abdominal and back pain controlled with pain medications. He would like to go home and continue doing what he lives and spend time with his girlfriend. Renal function is slightly worse this morning. Review of Systems Review of Systems: All systems reviewed & are unremarkable except as noted in HPI & below Physical Exam Physical Exam: General exam: Appears comfortable, no acute distress HEENT: Pupils are equal and reactive to light Neck: No JVD, neck is supple trachea is midline Respiratory system: Clear breath sounds bilaterally. Gastrointestinal: Abdomen is soft, non distended, non tender, bowel sounds are present CVS: Regular rate and rhythm. No murmurs, rubs or gallops Musculoskeletal: No joint or muscle tenderness Extremities: Non tender, no edema, peripheral pulses are present Neuro: Oriented, no tremors, no focal neurological deficits Skin: No rashes Results & Data ([facility]) Vital Signs (Past 12 Hours) Vital Signs Temp Pulse Pulse Resp BP Pulse Ox 10/13/19 07:10 36.4 C L 76 19 94/64 L 98 10/13/19 05:08 36.4 C L 73 20 95/66 L 96 10/13/19 02:32 79 10/12/19 23:33 37.1 C 79 16 104/68 96 Laboratory Results 10/13/19 05:41 10/13/19 05:41 WBC 15.34 H RBC 2.99 L MCV 92.0 MCH 32.4 MCHC 35.3 RDW Std Deviation 47.3 H RDW Coeff of Selam 14.2 Plt Count 238 MPV 9.5 (1) Anemia Anemia type: unspecified type Qualified Code(s): D64.9 - Anemia, unspecified (2) Hypotension Hypotension type: unspecified hypotension type Qualified Code(s): I95.9 - Hypotension, unspecified
--- NOTE | 2019-10-13 11:48 | Discharge Summary ---
Date of Service October 13, 2019 Admission HPI Per Admitting Provider 59-year-old male, with history of colon cancer with metastasis to liver and lung, hyponatremia, thrombocytopenia, protein calorie malnutrition who presents to emergency room because of shortness of breath. Patient was seen by his primary care provider, for shortness of breath, hyponatremia, JOLANTA and EKG changes. He was then sent to emergency room for further evaluation. Patient follows with nephrology, recently was evaluated by Dr. Prince, and he also follows with oncology, had a recent visit with Dr. Rendon, at that time they discussed that unfortunately patient's metastatic cancer is incurable and he has a poor prognosis. He was already complaining of shortness of breath at a time, but was satting 100% on room air. Patient is telling me that when he is at rest, he does not have any issues/he is not short of breath, shortness of breath is bothering him with any activity/exertion. EKG was obtained in ED, and showed normal sinus rhythm with nonspecific T wave changes in anterior and inferior leads. Troponin was negative. He received a liter of normal saline in ED. No other medications were given at that time. Patient reports recent history of sinusitis, and took amoxicillin for that. He is coughing during my examination, he says that he has some sputum production, which is fairly clear/white. He does not believe his cough has changed much. Denies any fevers or chills. On October 03, he underwent paracentesis, with 5 L of ascitic fluid removed. He has history of cirrhosis with ascites. Currently says that he does not believe that his ascites reaccumulated, and does not complain of any edema or abdominal distention. Today on evaluation, he is found hypotensive, 80s over 50s, as already mentioned above, he received 1 L of normal saline. Blood cultures were obtained and currently pending. Sodium was low at 124, creatinine elevated at 2.35, previously less than 1. Hospitalist team was consulted for admission. Admission Exam Per Admitting Provider Physical Exam: thin male sitting up in the bed, in no acute distress, coughing Constitutional: + ill appearing and + thin; no acute distress Eyes: PERRL, conjunctivae normal, anicteric sclerae EOM intact bilaterally ENMT: external ear and nose normal, oropharynx normal Neck: normal visual inspection supple Respiratory: normal respiratory effort and + cough; no respiratory distress and no labored breathing Auscultation: + rhonchi (mild diffuse); no crackles and no wheezes Cardiovascular: RRR, no murmur, no edema Chest (Breasts): Chest: normal inspection of chest Gastrointestinal (Abdomen): Inspection/Auscultation: abdomen normal to inspection and normal bowel sounds; abdomen not distended Percussion/Palpation: abdomen soft; abdomen nontender, no guarding, abdomen not rigid and no ascites Musculoskeletal: Head/Neck/Chest: normocephalic, head atraumatic and neck supple Extremities: extremities normal to inspection Skin: no rashes, warm and dry Neurologic: PERRL, EOMI, accommodation nl, no face palsy, no dysarthria moves all extremities; no focal motor deficits Motor/Sensory: no tremor Psychiatric: A+Ox3, euthymic affect Genitourinary: no CVA tenderness Principal Diagnosis Acute kidney injury Hyponatremia Community acquired pneumonia Metastatic colon cancer Discharge Exam Constitutional + ill appearing (Chronically ill appearing) and + cachectic; no acute distress Eyes PERRL, conjunctivae normal, anicteric sclerae ENMT external ear and nose normal, oropharynx normal Respiratory normal respiratory effort, lungs clear to auscultation Cardiovascular Rate/Rhythm: regular rate and regular rhythm S1 S2 Gastrointestinal (Abdomen) Inspection/Auscultation: + abdomen distended and normal bowel sounds Percussion/Palpation: abdomen soft; abdomen nontender, no guarding and abdomen not rigid Neurologic PERRL, EOMI, accommodation nl, no face palsy, no dysarthria no focal motor deficits Psychiatric A+Ox3, euthymic affect Discharge Data Allergies Allergy/AdvReac Type Severity Reaction Status Date / Time No Known Allergies Allergy Unverified 10/10/19 13:42 Consultations 10/10/19 14:21 ED Decision to Admit Stat 10/10/19 17:14 Consult Nephrology Routine 10/10/19 17:50 Consult Palliative Care Routine Ordered Studies 10/10/19 13:44 CT chest wo con Stat FINDINGS: Atrophic appearing thyroid. Prominent AP window lymph nodes measure up to 9 mm. Additionally, there are prominent subcarinal and hilar lymph nodes also present. Heart is normal in size without pericardial effusion. Coronary artery calci fications. No thoracic aortic aneurysm. Right IJ [id number]-[id number] catheter distal tip terminates in the mid SVC. Resolution of the previously described trace left pleural effusion. No pneumothorax or pleural effusion. No overt pulmonary edema. Multilobar and multi segmental distribution of bibasilar predominant solid pulmonary nodules have increased from comparison measuring up to 1.6 cm within the right lower lobe and 2.1 x 2.7 cm within the right lower lobe. Multisegmental tree-in-bud nodules are also noted within all lobes bilaterally with intermixed groundglass opacities. Moderate tracheobronchial secretions. Moderate to large amount of upper abdominal ascites with omental edema/nodularity. Paraesophageal varices with distal esophageal wall thickening. There is increased size of a central hepatic mass measuring 6.0 x 5.6 cm, previously measured at approximately 3.3 cm. Partially calcified lesion of the right adrenal gland. Gynecomastia. No acute fracture or suspicious bone lesion identified. IMPRESSION: 1. Progressively worsened bibasilar predominant solid pulmonary nodules are compatible with pulmonary metastasis.. 2. Progressive hepatic metastatic disease with abdominal ascites and upper abdominal omental nodularity, possibly reflective of omental carcinomatosis. 3. Multisegmental bilateral scattered tree-in-bud nodules with intermixed groundglass densities, most pronounced within the basal left lower lobe may represent endobronchial spread of neoplasm versus superimposed infectious or inflammatory bronchiolitis/pneumonitis. 4. Mildly prominent mediastinal lymph nodes Hospital Course (1) JOLANTA (acute kidney injury): Likely due to prerenal azotemia In setting of recent large-volume paracentesis Cr: Cr: 2.35>>1.98>>1.84 >>1.72>>2.47 Was comanaged with Center Human Resources Manager Treated with iv lasix and albumin Aldactone had been on hold Today, patient stated he wants to be discharged home on home hospice He stated he understands his cancer is advanced and will like to continue treatment at home with hospice He wants to also keep following his college or university registrar, oncologist and to get palliative paracentesis when needed Discussed with Dr Prince, college or university registrar and case packer Discharged on torsemide 40mg daily Continue to hold aldactone on discharge Discharged on home hospice (2) Hyponatremia: Na was 124 on admission increased up to 128 yesterday, dropped again to 124 today Likely due to SIADH Continue fluid restriction 1200cc/day at home (3) Hypotension: In the setting of cirrhosis/liver disease SBP runs in 90s-110s No dizziness reported per patient Counselled on fall precautions Hold aldactone as above (4) Shortness of breath: Pneumonitis/Bronchiolitis. Possible Community acquired pneumonia CT Chest:Progressively worsened bibasilar predominant solid pulmonary nodules are compatible with pulmonary metastasis. Progressive hepatic metastatic disease with abdominal ascites and upper abdominal omental nodularity, possibly reflective of omental carcinomatosis. Multisegmental bilateral scattered tree-in-bud nodules with intermixed groundglass densities, most pronounced within the basal left lower lobe may represent endobronchial spread of neoplasm versus superimposed infectious or inflammatory bronchiolitis/pneumonitis. Mildly prominent mediastinal lymph nodes Deconditioning due to comorbidities could be contributing as well COVID screen negative Treated with antibiotics Sputum culture - staph aureus Based on sensitivities, discharge on clindamycin to complete therapy. We discussed possible side effects Blood cultures -negative to date Currently saturating well on room air. (5) Colon cancer: Metastatic Colon Cancer Diagnosed in 2013 Metastases to lung and liver Follows with Dr. Rendon, last seen on October 07, 2019 No further treatment planned as has very poor prognosis (6) Liver metastasis: (7) Ascites: S/P large-volume paracentesis on October 03. Management as above Total Time Total Time Spent Total Time Spent (In Minutes): 50 Total Time Includes: Examination of the Patient, Discharge Planning, Medication Reconciliation and Communication With Other Providers Discharge Plan Discharge Items Patient Disposition: Hospice - Home Reason For Visit: SHORTNESS OF BREATH Discharge Diagnosis: Acute kidney injury Hyponatremia Community acquired pneumonia Metastatic colon cancer Condition on Discharge: Fair Activity: Resume your previous activity Non-emergency contact: Primary Care Provider, Center Human Resources Manager and Oncologist Call non-emergency contact if: you have any medication questions and your symptoms worsen Follow-up/Referrals: Radhames Millard PA-C [Primary Care Provider] - Diet: Regular Fluids: 1200ml (5 cups) Addtl Attending Provider Instructions: Mr Soler You came to hospital complaining of shortness of breath. Evaluation showed possible pneumonia. You were started on antibiotics. Evaluation also revealed acute kidney injury and low sodium levels. You were comanaged with the Center Human Resources Manager. After multiple discussions with you, you decided to be discharged home on home hospice. You are being discharged home. Please complete the remaining days of antibiotic therapy. It was a pleasure taking care of you. Pending Studies at Discharge: No Stand-Alone Forms: My [facility] Medications and DC Order Prescriptions: New torsemide 20 mg Tablet 40 mg PO QAM 30 Days Qty: 60 RF: 0 polyethylene glycol 3350 [Miralax] 17 gram Powder In Packet 17 g PO DAILY PRN (Reason: constipation) 30 Days Qty: 30 RF: 0 oxycodone 5 mg Tablet 5 mg PO Q6H PRN (Reason: pain) Qty: 30 RF: 0 clindamycin HCl 300 mg capsule 300 mg PO Q6H 7 Days Qty: 28 RF: 0 Continued nadolol 20 mg tablet 20 mg PO BID RF: 0 Discontinued furosemide [Lasix] 20 mg Tablet 20 mg PO QAM RF: 0 spironolactone 50 mg tablet 50 mg PO QAM RF: 0 tramadol-acetaminophen 50 mg PO BID RF: 0 Discharge Orders: Discharge Order (Routine); Ordered 10/13/19 Ordered By: Coleen Anderson Admission Data Admit Date/Time: 10/10/19 18:09 Attending Provider: Coleen Anderson I. Admit Provider: Rene Cordero Primary Care Provider: Radhames Millard Other Providers: Rene Cordero ; Glenis Prince ; Dedrick Ozuna Other Interventions: Discharge Summary Assessment (RN) Last Done: 10/13/19 13:39 DC Date/Time DO NOT enter until pt leaves facility: 10/13/19 15:52
[2019-10-13] MEDS ORDERED: CLINDAMYCIN HCL 150 MG CAP PO SCH ×2 (12:00→18:00)
[2019-10-13] MEDS: HEPARIN 100 UNIT/ML 5ML FLUSH FLUSH PRN (13:42)
== END 2019-10-13 15:52 | disposition hospice, home (50) | DRG 682 ==
LOC: ED 11:26 → SUATTDRO 18:09 → 2W 18:09